=== PATIENT | female | born 1965 | race Caucasian/White ===

== ENCOUNTER 2017-12-24 13:16 | Emergency (ER) | payer BC, SELFPAY ==
[2017-12-24] VITALS (16 sets, daily range): BP systolic 140–160; BP diastolic 90–94; PULSE 60–73; RESP 12–23; TEMP 36.5–37; O2SAT 97–100
--- NOTE | 2017-12-24 13:35 | DI.RAD_ITS ---
SYMPTOMS/DIAGNOSIS: CHEST TIGHTNESS, ? ACUTE DISEASE PA AND LATERAL CHEST: The heart size is normal. A moderate-sized hiatal hernia with air-fluid level is seen. The lungs appear clear. IMPRESSION: Hiatal hernia. No acute abnormality.
--- NOTE | 2017-12-24 13:39 | ED.GENADUL_ITS ---
Discharge Plan Disposition Patient Disposition: HOME Condition: Improving Discharge Details Chief Complaint: Chest Pain Clinical Impression: Palpitations, Dyspnea Primary Care Provider: Verónica Dent ED Provider: Gabriela Barrios Home Meds and New Rx's Prescriptions: Continue ibuprofen 200 MG tablet 200 mg PO PRN RF: 0 calcium carbonate-vitamin D3 [Caltrate with Vitamin D3] 1 EACH tablet 2 ea PO HS RF: 0 cholecalciferol (vitamin D3) 1,000 UNIT tablet 2,000 unit PO DAILY RF: 0 levothyroxine 100 MCG tablet 100 mcg PO DAILY Qty: 90 RF: 12 mv,Ca,sfy-IJ-guljnk no.157 [Estroven Maximum Strength] 400 MCG tablet 400 mcg PO RF: 0 cetirizine 10 MG tablet 10 mg PO DAILY Qty: 30 RF: 11 ketorolac 0.4 % drops 1 drp Ophthalmic QID PRN (Reason: eye pain) Qty: 5 RF: 0 fexofenadine [Susan Allergy] 180 mg Tablet 180 mg PO DAILY RF: 0 loratadine 10 mg Capsule 10 mg PO HS RF: 0 raspberry ketone 100 mg Capsule 2 cap PO HS RF: 0 Discharge Instructions Instructions: Palpitations (ED), Dyspnea (ED) Additional Instructions: Drink plenty of fluids and get plenty of rest. Follow-up with the primary care doctor in 1 week for reevaluation and for results of the stress test. Return immediately to the emergency department any worsening or new concerning symptoms. Discharge Data Discharge Physician: Gabriela Barrios Medical Decision Making 52-year-old female with a history of hypothyroidism who presents for intermittent episodes of palpitations, shortness of breath and dizziness occurring over the past 3 weeks. She admits to a similar presentation of symptoms in the spring 2017 for which she had a environmental monitoring technician which was negative. Stress test from Apr 2017 read as occasional PVCs, rarely symptomatic. EKG notes a rate of 71, sinus, no acute ST elevation or depression, QTc 389, QRS 102. Blood pressure 160/90. Remainder of vitals within normal limits. Patient appears nontoxic and in no acute distress, laughing throughout exam and appears comfortable. Differential diagnosis includes ACS, dissection, PE, pneumonia, anxiety, hyperthyroid. Symptoms have been present for 3 weeks, and with intermittent episodes occurring at rest and when bending over, suspect possibly anxiety, dehydration, electrolyte abnormality. Will place an IV, bolus IV fluids, Ativan, cardiac workup including d-dimer, chest x-ray. 1400 -- Per nurse, pt refused ativan. 1515 -- Labs reviewed and note D dimer of 569 but otherwise unremarkable. Troponin negative. TSH within normal limits. CXR negative for acute findings. Will obtain a CT chest to r/o PE. Discussed with patient that although her symptoms have been present for 3 weeks, with more persistent symptoms today, will check a second troponin. Pt is agreeable with plan. She denies any acute complaints at this time. 1645 -- CT chest negative for PE. Pt states her symptoms are resolved and she denies any acute complaints at this time. 1715 -- 2nd troponin negative. Pt feels good and is requesting to go home. She denies any symptoms. Patient states she feels like her symptoms are possibly due to hot flashes from her menopause. Zio patch placed at bedside. Outpatient stress test ordered. Patient instructed to follow-up with primary care doctor in 1 week for reevaluation and to return immediately to the emergency department if worse. HPI General Mode of arrival: ambulatory . Date/Time Provider Initiated Documentation: 12/24/17 13:16 . Limitations to Documentation: no limitations . Information obtained by: patient . HPI Narrative: Patient is a 52-year-old female who presents the ED with complaint of intermittent palpitations, shortness of breath and dizziness for the past 3 weeks. She states the episodes last a few minutes have been occurring at least once daily. Patient admits to two significant episodes 4 days ago as well as this morning. Patient states today's episode occurred when she bent over and then stood up and felt dizzy, short of breath with heart racing and chest pain. She also states she feels like these episodes have been occurring since a bee sting 2 weeks ago. She had a similar episode occur after a bee sting in September. Patient denies a history of anaphylaxis to bee stings and states she had not taken steroids for either bee sting. She also admits to left arm pain since yesterday. she states she has a history of hot flashes for which she has seen her primary care doctor in women's wellness and had suggested estrogen but patient does not want to take this. She states her symptoms feel different than a previous hot flash and that she usually does not have palpitations, shortness of breath or dizziness. Patient states she has been eating and drinking well and denies recent illness, fever, recent travel, recent surgery, leg pain or swelling, blurry vision, cough, abdominal pain, back pain. Past medical history: Hypothyroidism Surgical history: Left ACL repair, hysterectomy, uterine prolapse Social history: Occasional alcohol use, denies tobacco or drugs Medications: Synthroid, loratadine Allergies: Oxycodone (nausea), tetanus PCP: Dr. Dent Related Data Home Medications Medication Instructions Recorded Confirmed ibuprofen 200 mg PO PRN 06/20/12 12/24/17 calcium carbonate-vitamin D3 2 ea PO HS 11/20/14 12/24/17 [Caltrate with Vitamin D3] cholecalciferol (vitamin D3) 2,000 unit PO DAILY 05/06/15 12/24/17 levothyroxine 100 mcg PO DAILY #90 tab-cap 01/28/17 12/24/17 mv,Ca,yso-VR-lruumj no.157 400 mcg PO 02/15/17 [Estroven Maximum Strength] cetirizine 10 mg PO DAILY #30 tab-cap 10/20/17 ketorolac 0.4 % eye drops 1 drp OPHTHALMIC QID PRN #5 ml 11/29/17 12/24/17 fexofenadine [Susan Allergy] 180 mg PO DAILY 12/24/17 12/24/17 loratadine 10 mg PO HS 12/24/17 12/24/17 raspberry ketone 2 cap PO HS 12/24/17 12/24/17 Previous Rx's Medication Instructions Recorded levothyroxine 100 mcg PO DAILY #90 tab-cap 01/28/17 cetirizine 10 mg PO DAILY #30 tab-cap 10/20/17 ketorolac 0.4 % eye drops 1 drp OPHTHALMIC QID PRN #5 ml 11/29/17 Allergies Allergy/AdvReac Type Severity Reaction Status Date / Time bee pollen Allergy Unknown Unverified 12/24/17 13:29 hydrocodone AdvReac Intermediate nausea Unverified 12/24/17 13:29 lactose AdvReac Unknown Unverified 12/24/17 13:29 oxycodone AdvReac Unknown dizziness, Unverified 12/24/17 13:29 nausea tetanus and diphtheria AdvReac TOLERATES Unverified 12/24/17 13:29 toxoids ONE HALF DOSE dust AdvReac Intermediate congestion Uncoded 12/24/17 13:29 General Stated Complaint: Chest Pain RICHI: 2 Review of Systems Review of Systems All systems reviewed & are unremarkable except as noted in HPI and below Constitutional Denies chills, Denies excessive sweating, Denies fatigue, Denies fever(s), Denies weakness and Denies weight loss Eyes Reports system reviewed and no additional complaints, except as docu and Denies blurry vision ENT Denies vertigo, Reports dizziness, Denies otalgia, Denies nasal congestion, Denies sore throat and Denies throat swelling Cardiovascular Reports chest pain, Denies syncope, Reports rapid heart rate and Reports dyspnea Respiratory Reports dyspnea Gastrointestinal Denies abdominal pain, Denies diarrhea and Denies vomiting Genitourinary Denies hematuria, Denies dysuria and Denies flank pain Musculoskeletal Denies back pain and Denies joint swelling Integumentary/Breasts Denies lesions and Denies rash Neurologic Denies behavioral changes, Denies confusion, Denies vertigo, Reports dizziness, Denies syncope and Denies weakness Psychiatric Denies behavioral changes, Denies confusion and Denies depression Endocrine Denies excessive sweating and Denies fatigue Hematologic/Lymphatic Denies easy bruising and Denies lymphadenopathy Allergic/Immunologic Denies throat swelling PFSH Family History Mother Essential hypertension Osteoporosis Father Diabetes Essential hypertension Heart disease Hyperlipidemia Cerebrovascular accident Sister No problems noted. Sister No problems noted. Sister No problems noted. Brother No problems noted. Brother No problems noted. Grandfather No problems noted. Grandfather No problems noted. Grandmother Neoplasm Grandmother Diabetes Son No problems noted. Daughter No problems noted. Daughter No problems noted. Social History Smoking/Tobacco Use Status: Never Surgical History Arthroplasty of knee Ligation of fallopian tube Meniscectomy Repair, ACL (09/21/12) Vaginal hysterectomy Exam Const General: cooperative and healthy appearing Orientation: alert and awake [facility] Head: normal to inspection Ears: hearing grossly normal bilaterally, external ears normal and TM's normal bilaterally General nose exam: external nose normal Face and sinus: normal facial exam Mouth: oral mucosae normal Teeth and gingiva: dentition normal Throat: posterior oropharynx normal Eyes General: appearance normal, both eyes and all related structures Eyelids: eyelids normal Pupils: PERRL EOM: EOM intact bilaterally Neck Neck: normal visual inspection Lymphatic: no lymphadenopathy noted Chest Chest: normal inspection of the chest, normal palpation of entire chest wall and no tenderness Resp Effort & Inspection: normal respiratory effort and able to speak in complete sentences Auscultation: clear to auscultation bilaterally Cardio Rate: regular rate Rhythm: regular rhythm GI Inspection: normal to inspection Palpation: soft, not firm, no guarding, no hepatosplenomegaly, no masses and nontender Auscultation: normal bowel sounds Back/Spine/Pelvis Back: no CVA tenderness Skin General skin exam: no rashes or lesions noted Neuro General: alert and awake Cognition: normal cognition Speech: speech normal Gait: normal gait Motor: muscle tone normal throughout Sensory Exam: no sensory deficits noted Extrem General: normal to inspection, full ROM and normal capillary refill Psych Appearance: grossly normal Mental Status: mental status grossly normal Speech and Movement: speech and movement normal Affect: normal affect Thought Process: normal Course Vital Signs Temperature 97.7 F 12/24/17 13:25 Pulse 73 12/24/17 13:25 Respiratory Rate 16 12/24/17 13:25 Blood Pressure 160/90 H 12/24/17 13:25 Pulse Oximetry 99 12/24/17 13:25 Temperature 97.7 F 12/24/17 13:25 Temperature Source Temporal Artery Scan 12/24/17 13:25 Pulse 73 12/24/17 13:25 Respiratory Rate 16 12/24/17 13:25 Respiratory Effort Non-Labored 12/24/17 13:28 Blood Pressure 160/90 H 12/24/17 13:25 Blood Pressure Position Supine 12/24/17 13:25 Pulse Oximetry 99 12/24/17 13:25 Oxygen Delivery Method Room Air 12/24/17 13:25 Oxygen Flow Rate 0 12/24/17 13:25 Pain Level 1 12/24/17 13:25
[2017-12-24] MEDS: Normal Saline 1,000 ML 1000 ML IV (13:57)
[2017-12-24 13:59] LABS: Abs Immature Grans 0.01 k/cumm (0.0-0.09); Absolute Basophil Count 0.08 k/cumm (0.0-0.2); Absolute Eosinophil Count 0.46 k/cumm (0.0-0.7); Absolute Monocyte Count 0.86 k/cumm (0.11-0.7); Absolute Neutrophil Count 5.02 k/cumm (1.2-6.7); Basophils % 0.9; HGB 12.9 g/dL (12.0-15.5); Immature Grans % 0.1; Lymphocytes % 29.6; Mean Corp. HGB Concentration 33.1 g/dL (32.0-36.0); Mean Corpuscular Hemoglobin 29.7 pg (27.0-33.0); Mean Corpuscular Volume 89.7 fL (80-95); Mean Platelet Volume 10.4 fL (8.0-11.0); Monocytes % 9.4; Platelet Count 354 x1000/uL (130-400); RBC 4.35 m/cumm (4.00-5.20); RBC Distribution Width 14.5 % (11.7-14.6); White Blood Cell Count 9.13 k/cumm (4.4-10.8)
[2017-12-24 14:29] LABS: D-Dimer 569 ng/mlFEU (<500)
[2017-12-24 14:31] LABS: ALT 23 U/L (12-78); AST 19 U/L (15-37); Albumin 3.2 g/dL (3.4-5.0); Alkaline Phosphatase 79 U/L (46-116); Anion Gap 7.4 mmol/L (3-11); BUN 15 mg/dL (7-18); Bilirubin, Direct 0.06 mg/dL (0.00-0.20); Bilirubin, Total 0.2 mg/dL (0.2-1.0); CO2 29.6 mmol/L (21.0-32.0); CREATININE 0.83 mg/dL (0.55-1.02); Calcium 8.3 mg/dL (8.5-10.1); Chloride 106 mmol/L (98-107); Glucose 104 mg/dL (70-100); Lipase 102 U/L (73-393); Magnesium 1.9 mg/dL (1.8-2.4); Potassium 3.8 mmol/L (3.5-5.1); Sodium 143 mmol/L (136-145); TSH 2.08 uIU/mL (0.358-3.74)
[2017-12-24 14:32] LABS: Troponin I < 0.02 ng/mL (0.00-0.06)
--- NOTE | 2017-12-24 15:08 | DI.CT_ITS ---
SYMPTOMS/DIAGNOSIS: SOB, PALPITATIONS, ELEVATED D-DIMER, ? PE CHEST CT FOR PULMONARY EMBOLISM: CT angiography was performed with multi slice acquisition and multi planar and 3D reconstruction. There are no prior PE examinations. The pulmonary arteries and aorta are well opacified with the IV contrast. No pulmonary emboli or aortic dissection is seen. There is a moderate-sized hiatal hernia containing food debris. The lungs show mild respiratory motion but appear clear. No infiltrates or effusions are seen. No thoracic compression fracture or pneumothorax is seen. IMPRESSION: Moderate-sized hiatal hernia. No evidence of pulmonary emboli.
[2017-12-24] MEDS: Omnipaque 350 MG/ML 100 ML BTL IJ (15:36)
[2017-12-24 17:23] LABS: Troponin I < 0.02 ng/mL (0.00-0.06)
--- NOTE | 2018-01-19 10:47 | ZIOP_ITS ---
ZIO Patch Report DATE OF DICTATION January 19, 2018 STUDY INDICATION Palpitations. REQUESTING PROVIDER Verónica Dent M.D. FINDINGS The patient was monitored for 13 days. COMMENTS The predominant underlying rhythm was sinus rhythm. Average heart rate in sinus rhythm 76 beats per m inute, range of 47 to 151 beats per minute. There was occasional supraventricular ectopy, 1.3% PACs. There were 82 episodes of supraventricular tachycardia, average heart rate 137 beats per minute, range 70 to 280 beats per minute. The longest e pisode lasted 28 seconds. There was no ventricular tachycardia. There were no pauses greater than 3 seconds. There was no higher-degree heart block. There were 8 patient events, 6 events correlated with supraventricular tachycardic, all other events did not correlate with arrhythmia. FINAL INTERPRETATION Symptomatic paroxysmal supraventricular tachycardia. Sree Benítez M.D. DAJUAN/steve T-01/19/2018
== END 2017-12-24 18:10 | disposition home or self-care (01) ==
PROVIDERS: Emergency Provider Physician Assistant; PCP Family Medicine
DX: R00.2 Palpitations (principal); R06.00 Dyspnea, unspecified
CPT/HCPCS: 36415; 71275; 80053; 80076; 83690; 93005; 93225; 96360; 99285; 71046; 83735; 84443; 84484; 85025; 85379; 93010; J3490

== ENCOUNTER 2017-12-29 00:13 | Outpatient (CLI) | payer BC, SELFPAY ==
--- NOTE | 2017-12-29 14:00 | ETT_ITS ---
*[facility]* *[facility]* [address] [place] [address] Stress Electrocardiography Vaibhav protocol Date of study: 12/29/2017 *PATIENT PRESENTATION* Height: 172.7cm (68in) Blood Pressure: Weight: 93.2kg (205lb) BSA: 2.14m^2 Ordering physician: Gabriela Barrios Impressions: Normal study after maximal exercise. Summary: 1. Stress ECG conclusions: The stress ECG is negative. Burger treadmill score: 9. This score predicts a low risk of cardiac events. 2. Stress: The target heart rate was achieved. The heart rate response to stress is normal. There is resting hypertension with an appropriate response to stress. The patient experienced no chest pain during stress. Exercise capacity is good (10.2 METS). Indication: R07.9. History: REASON FOR TESTING: PATIENT: PATIENT HAS HAD PALPITATIONS, CHEST PAIN, SHORTNESS OF BREATH INTERMITTENTLY FOR THE PAST TWO WEEKS. REPORTS DIZZYNESS AND LIGHTHEADEDNESS OVER THE PAST WEEK. SOME DAYS HAVE NO SYMPTOMS. PATIENT PRESENTED TO THE ED 12/24/17 WITH CHEST PAIN , PALPITATIONS AND DYSPNEA. TROPONINS WERE NEGATIVE, NM RULED OUT. PATIENT CURRENTLY WEARING ZIO PATCH. PAST MEDICAL HISTORY: HYPOTHYROID, HYSTERECTOMY AND UTERINE PROLAPSE. FAMILY HISTORY: FATHER AND MOTHER-HEART DISEASE SMOKING: NEVER EXERCISE: PHYSICALLY ACTIVE AROUND THE HOME. Risk factors: Family history of coronary artery disease. Cholesterol: 188mg/dl. HDL: 48mg/dl. LDL: 132mg/dl. Triglycerides: 49mg/dl. ALLERGIES: BEE POLLEN, HYDROCODONE, LACTOSE, OXYCODONE, DUST, TETANUS AND DIPHTHERIA TOXOIDS. MEDICATIONS: IBUPROFEN 200 MG PRN, CALCIUM CARBONATE-VITAMIN D3 2 TABS HS, CHOLECALCIFEROL 2000 UNITS DAILY, LEVOTHYROXINE 100 MCG DAILY, ESTROVEN MAXIMUM STRENGTH 400 MCG DAILY, CITIRIZINE 10 MG DAILY, KETORLAC 0.4% EYE DROPS QID PRN, FREYA ALLERGY 180 MG DAILY, LORATADINE 10 MG HS, RASPBERRY KETONE 2 CAPULES HS. Protocol: Vaibhav protocol. Baseline ECG: LAST EKG: SINUS RHYTHM 12/24/17. TODAY'S EKG: SINUS RHYTHM. Normal ECG. Nonspecific ST and T wave changes. Stress protocol: + +---+ + !Stage !HR !BP (mmHg) ! + +---+ + !Baseline supine !66 !150/94 (113) ! + +---+ + !Baseline standing !73 !146/84 (105) ! + +---+ + !Stage I; 1.7mph, 10degrees; 3 min !108!170/98 (122) ! + +---+ + !Stage II; 2.5mph, 12degrees; 3 min !130!178/100 (126)! + +---+ + !Stage III; 3.4mph, 14degrees; 3 min!156!210/112 (145)! + +---+ + !Recovery; 1 min !130!212/104 (140)! + +---+ + !Recovery; 3 min !87 !164/98 (120) ! + +---+ + !Recovery; 6 min !88 !154/98 (117) ! + +---+ + * Stress results: The target heart rate was achieved. The heart rate response to stress is normal. There is resting hypertension with an appropriate response to stress. The rate-pressure product for the peak heart rate and blood pressure was [id number] Hg/min. The patient experienced no chest pain during stress. Exercise capacity is good (10.2 METS). Stress ECG: EXERCISE TESTING ENDED IN 9 MINUTES 3 SECONDS WITH A MAX HEART RATE OF 164 , 98 % OF TARGET. BLOOD PRESSURE: HYPERTENSIVE RESPONSE. ECTOPY: OCCASIONAL PAC'S AND PVC'S. MILD TRANSIENT ST DEPRESSION IN II, III, AVF LEADS AT 6:53 SECONDS--RETURNED TO NORMAL IN RECOVERY. MET'S: 10.23 ANGINA: NONE ISCHEMIA: MILD TRANSIENT ST DEPRESSION IN II, III, AVF LEADS AT 6:53 SECONDS--DEPRESSION NO LONGER EVIDENT JUST PRIOR TO RECOVERY. FUNCTIONAL CAPACITY: ABOVE AVERAGE The stress ECG is negative. Burger treadmill score: 9. This score predicts a low risk of cardiac events. Study data: Sree Benítez MD supervised and was readily available during the procedure. This study was interpreted by [facility]. Study status: Routine. Consent: The risks, benefits, and alternatives to the procedure were explained to the patient and informed consent was obtained. Procedure: Initial setup. A baseline ECG was recorded. Surface ECG leads and manual cuff blood pressure measurements were monitored. Heart sounds: Normal. Lung sounds: Normal. Treadmill exercise testing was performed using the Vaibhav protocol. Study completion: The patient tolerated the procedure well and was discharged from the lab. Discharge: The patient left the laboratory in stable condition. Birthdate: Patient birthdate: 1965. Sex: Gender: female. Study date: Study date: 12/29/2017. Study time: 02:00 PM. Signature Documentation: The Stress ECG portion of this study was interpreted by Sree Benítez MD. Electronically signed by Sree Benítez 12/29/2017 15:46
== END 2017-12-29 00:33 ==
PROVIDERS: PCP Family Medicine; Visit Provider Physician Assistant
DX: R07.9 Chest pain, unspecified (principal); R00.2 Palpitations; R42 Dizziness and giddiness; E03.9 Hypothyroidism, unspecified; Z82.49 Family history of ischemic heart disease and other diseases of the circulatory system
CPT/HCPCS: 93017

== ENCOUNTER 2018-02-14 00:52 | Outpatient (CLI) | payer BC, SELFPAY ==
--- NOTE | 2018-02-14 13:30 | DI.MAMMO_ITS ---
SYMPTOM/DIAGNOSIS: SCREENING, Z12.31 MAMMOGRAMS: Mammograms were interpreted according to the usual protocol including computer analysis with CAD system, tomosynthesis and C view imaging. Comparison is made with the prior examinations. No suspicious masses or microcalcifications are seen. The skin and axillae are unremarkable. IMPRESSION: No evidence for malignancy. Yearly mammography is recommended. Category 1, breast density C. MQSA ASSESSMENT OF FINDINGS: Negative. Category 1. Patient will receive a letter notifying them of these results. Bi-RADS category C. The breasts are heterogeneously dense, which may obscure small masses.
[2018-02-14 14:38] LABS: Vitamin D 25 Total 65.3 ng/ml (30-100)
[2018-02-14 14:40] LABS: ALT 20 U/L (12-78); AST 17 U/L (15-37); Albumin 3.6 g/dL (3.4-5.0); Alkaline Phosphatase 77 U/L (46-116); Anion Gap 11.5 mmol/L (3-11); BUN 18 mg/dL (7-18); Bilirubin, Total 0.4 mg/dL (0.2-1.0); CO2 25.5 mmol/L (21.0-32.0); CREATININE 0.75 mg/dL (0.55-1.02); Chloride 106 mmol/L (98-107); Glucose 100 mg/dL (70-100); Potassium 4.2 mmol/L (3.5-5.1); Sodium 143 mmol/L (136-145); Total Protein 7.1 g/dL (6.4-8.2); Vitamin B12 289 pg/mL (193-986)
[2018-02-15 10:34] LABS: FSH 53.8 mIU/ml; LH 28.4 mIU/ml
== END 2018-02-14 01:12 ==
PROVIDERS: PCP Family Medicine; Visit Provider Family Medicine
DX: Z12.31 Encounter for screening mammogram for malignant neoplasm of breast (principal); Z00.00 Encounter for general adult medical examination without abnormal findings; N95.1 Menopausal and female climacteric states; F41.9 Anxiety disorder, unspecified
CPT/HCPCS: 36415; 77063; 77067; 80053; 82306; 82607; 83001; 83002

== ENCOUNTER 2018-03-14 13:02 | Outpatient (REF) | payer BC, SELFPAY ==
[2018-03-14 13:22] LABS: Bilirubin Negative (Negative); Blood Moderate (Negative); Clarity Sl Cloudy; Glucose Negative (Negative); Ketones Negative (Negative); Leukocyte Esterase Negative (Negative); Nitrite Negative (Negative); Specific Gravity >= 1.030 (1.005-1.025); Urobilinogen 0.2 EU/dL (Up TO 0.2); pH 5.5 (5-8)
[2018-03-14 14:25] LABS: Epithelial Cells Many HPF (Negative); RBC 0-2 (0-2); WBC 0-2 HPF (0-5)
[2018-03-14 14:26] LABS: Bacteria Few HPF (Negative); C & S Indicated? No/Sq. Contamination; Casts Negative LPF (Negative); Crystals Negative HPF (Negative); Mucus Moderate (Negative)
== END 2018-03-14 13:22 ==
LOC: LBN 13:02
PROVIDERS: PCP Family Medicine; Visit Provider Family Medicine
DX: R35.0 Frequency of micturition (principal)
CPT/HCPCS: 81003; 81015

== ENCOUNTER 2018-03-16 15:27 | Emergency (ER) | payer BC, SELFPAY ==
[2018-03-16 15:37] VITALS: BP 144/88; PULSE 74; RESP 18; O2SAT 99
[2018-03-16 15:53] VITALS: TEMP 36.8
--- NOTE | 2018-03-16 16:03 | W.ED.GENAD ---
Discharge Plan Disposition Patient Disposition: HOME Condition: Improving Discharge Details Chief Complaint: Abd Prob Clinical Impression: Abdominal pain Primary Care Provider: Verónica Dent ED Provider: Rusty Merlos Home Meds and New Rx's Prescriptions: Continued levothyroxine 100 mcg tablet 100 mcg PO DAILY Qty: 90 RF: 12 epinephrine [EpiPen 2-Silas] 0.3 mg/0.3 mL auto-injector 0.3 mg IM ONCE Qty: 2 RF: 2 ibuprofen 200 MG tablet 200 mg PO PRN RF: 0 calcium carbonate-vitamin D3 [Caltrate with Vitamin D3] 1 EACH tablet 2 ea PO HS RF: 0 ketorolac 0.4 % drops 1 drp Ophthalmic QID PRN (Reason: eye pain) Qty: 5 RF: 0 cholecalciferol (vitamin D3) 1,000 unit tablet See Patient Comments PO DAILY RF: 0 loratadine 10 mg Capsule 10 mg PO HS RF: 0 fexofenadine [Susan Allergy] 180 mg tablet 180 mg PO DAILY PRNRF: 0 Discontinued ciprofloxacin HCl 250 mg tablet 250 mg PO BID Qty: 14 RF: 0 Discharge Instructions Instructions: Abdominal Pain (ED) Additional Instructions: Stop the ciprofloxacin. Home to rest this evening. Tylenol and/or ibuprofen as needed for discomfort. Next dose of ibuprofen in 6 hours. Please follow-up with Dr. Dent in clinic for recheck. Return if you develop a fever, vomiting, worsening pain or any other concerns. Medical Decision Making 52-year-old female presents with approximately 4 days of right lower quadrant abdominal pain. She was seen by her primary care and had a urinalysis ordered which she reports was negative and for which she took 3 days of ciprofloxacin, last dose was this morning. She arrives with no temperature, reassuring vital signs, tenderness of right lower quadrant on exam. Differential diagnosis includes colitis, diverticulitis, appendicitis, mesenteric adenitis. Patient had IV access established comfort for laboratory testing as well as CT imaging. Her diagnostic study reveals multiple nonspecific, nonpathologic small lymph nodes in the mesentery. There is report of stable diffuse inflammatory stranding throughout the central mesentery. The junaid mesentery has a differential diagnosis that is broad but does include edema, fibrosis, carcinoma which does not appear to be present. The pt seen in consultation by Dr Priest. No indication for admission or surgical management. Will treat with NSAIDs and follow-up with primary care office. Dr. Priest and I discussed the case with the patient at the bedside HPI General Mode of arrival: ambulatory. Date/Time Provider Initiated Documentation: 03/16/18 15:44. Limitations to Documentation: no limitations. Information obtained by: patient. History of Present Illness 52 year old F presents to the emergency department with the chief complaint of Right lower quadrant abdominal, described as moderate, Quality is described as aching, and is localized to the abdomen and right. Patient reports no radiation. Patient started experiencing this day(s) and it has been constant. No relieving factors improve symptom(s), No exacerbating factors reported . Patient notes loss of appetite and malaise. Patient did receive the following treatments prior to arrival, other (Ciprofloxacin 500 mg twice daily times) HPI Narrative: Right lower quadrant abdominal pain, dull, achy, constant but does come in waves over days time. Had report of negative urinalysis in the office. Took 3 days worth of ciprofloxacin and now presents the ER complaining of ongoing discomfort Related Data Home Medications Medication Instructions Recorded Confirmed ibuprofen 200 mg PO PRN 06/20/12 02/21/18 calcium carbonate-vitamin D3 2 ea PO HS 11/20/14 02/21/18 [Caltrate with Vitamin D3] ketorolac 0.4 % eye drops 1 drp OPHTHALMIC QID PRN #5 ml 11/29/17 02/21/18 loratadine 10 mg PO HS 12/24/17 02/21/18 epinephrine 0.3 mg/0.3 mL 0.3 mg IM ONCE #2 each 01/03/18 02/21/18 injection, auto-injector cholecalciferol (vitamin D3) 1,000 See Rx Instructions PO DAILY 02/10/18 02/21/18 unit tablet fexofenadine 180 mg tablet 180 mg PO DAILY PRN 02/10/18 02/21/18 levothyroxine 100 mcg tablet 100 mcg PO DAILY #90 tab-cap 02/10/18 02/21/18 Previous Rx's Medication Instructions Recorded ketorolac 0.4 % eye drops 1 drp OPHTHALMIC QID PRN #5 ml 11/29/17 epinephrine 0.3 mg/0.3 mL 0.3 mg IM ONCE #2 each 01/03/18 injection, auto-injector levothyroxine 100 mcg tablet 100 mcg PO DAILY #90 tab-cap 02/10/18 Allergies Allergy/AdvReac Type Severity Reaction Status Date / Time bee pollen Allergy Unknown Verified 02/21/18 11:25 hydrocodone AdvReac Intermediate nausea Verified 02/21/18 11:25 lactose AdvReac Unknown Verified 02/21/18 11:25 oxycodone AdvReac Unknown dizziness, Verified 02/21/18 11:25 nausea tetanus and diphtheria AdvReac TOLERATES Verified 02/21/18 11:25 toxoids ONE HALF DOSE dust AdvReac Intermediate congestion Uncoded 02/14/18 10:04 General Stated Complaint: Abd Prob RICHI: 3 Review of Systems Review of Systems 8 systems reviewed and otherwise neg [facility] Medical History Tachycardia (Chronic 11/20/14) Plantar fasciitis (Resolved) Old anterior cruciate ligament disruption (Chronic 09/19/12) Migraine (Resolved) Low back pain (Chronic) Lactose intolerance (Chronic) Hypothyroidism (Chronic 12/09/09) Anxiety (Chronic) Surgical History Arthroplasty of knee Ligation of fallopian tube Meniscectomy Repair, ACL (09/21/12) Vaginal hysterectomy Family History Mother Essential hypertension Osteoporosis Cancer Father Diabetes Essential hypertension Heart disease Hyperlipidemia Stroke Sister No problems noted. Sister No problems noted. Sister No problems noted. Brother No problems noted. Brother No problems noted. Son No problems noted. Daughter No problems noted. 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 Pleasant, well groomed, interactive. HEAD: Normocephalic, atraumatic ENT: Mucous membranes moist, oropharynx unremarkable, External ear exam unremarkable EYES: PERRL, EOMI NECK: Full ROM, no BALINE, no menigismus CHEST/RESP: Nontender, clear to auscultation bilateral, no wheeze/rhonchi/rales CARDIOVASCULAR: RRR, no murmur, rub tata. 2+ Rad pulse bilateral ABDOMEN: Soft, tender in the right lower quad, no rebound or guarding, no mass. +Bowel sounds EXT: Full ROM, no edema, no rash Neuro: Grossly normal neurologic exam, conversant, interactive. Psych: Speech fluent, thoughts congruent, affect normal Course Vital Signs Pulse 74 03/16/18 15:37 Respiratory Rate 18 03/16/18 15:37 Blood Pressure 144/88 H 03/16/18 15:37 Pulse Oximetry 99 03/16/18 15:37 Temperature 36.8 C 03/16/18 15:53 Pulse 74 03/16/18 15:37 Respiratory Rate 18 03/16/18 15:37 Respiratory Effort Non-Labored 03/16/18 15:37 Blood Pressure 144/88 H 03/16/18 15:37 Pulse Oximetry 99 03/16/18 15:37 Oxygen Delivery Method Room Air 03/16/18 15:37 Oxygen Flow Rate 0 03/16/18 15:37 Pain Level 8 03/16/18 15:37
[2018-03-16 16:14] LABS: Abs Immature Grans 0.01 k/cumm (0.0-0.09); Absolute Basophil Count 0.08 k/cumm (0.0-0.2); Absolute Eosinophil Count 0.37 k/cumm (0.0-0.7); Absolute Lymphocyte Count 2.74 k/cumm (1.2-3.4); Absolute Monocyte Count 1.01 k/cumm (0.11-0.7); Absolute Neutrophil Count 5.82 k/cumm (1.2-6.7); Basophils % 0.8; Eosinophils % 3.7; HCT 42.6 % (36.0-46.0); Immature Grans % 0.1; Lymphocytes % 27.3; Mean Corp. HGB Concentration 32.9 g/dL (32.0-36.0); Mean Corpuscular Hemoglobin 29.4 pg (27.0-33.0); Mean Corpuscular Volume 89.5 fL (80-95); Mean Platelet Volume 10.6 fL (8.0-11.0); Monocytes % 10.1; Platelet Count 397 x1000/uL (130-400); RBC 4.76 m/cumm (4.00-5.20); RBC Distribution Width 14.2 % (11.7-14.6); White Blood Cell Count 10.03 k/cumm (4.4-10.8)
[2018-03-16 16:22] LABS: Bilirubin Negative (Negative); Blood Moderate (Negative); Clarity Sl Cloudy; Glucose Negative (Negative); Ketones Negative (Negative); Leukocyte Esterase Negative (Negative); Nitrite Negative (Negative); Specific Gravity >= 1.030 (1.005-1.025); Urobilinogen 0.2 EU/dL (Up TO 0.2); pH 5.5 (5-8)
[2018-03-16 16:24] LABS: ALT 41 U/L (12-78); AST 32 U/L (15-37); Albumin 3.5 g/dL (3.4-5.0); Alkaline Phosphatase 89 U/L (46-116); Anion Gap 7.4 mmol/L (3-11); BUN 18 mg/dL (7-18); Bilirubin, Total 0.3 mg/dL (0.2-1.0); CO2 29.6 mmol/L (21.0-32.0); CREATININE 1.03 mg/dL (0.55-1.02); Calcium 8.8 mg/dL (8.5-10.1); Chloride 105 mmol/L (98-107); Estimated GFR 55.84 (mL/min/1.73m2); Glucose 93 mg/dL (70-100); Magnesium 1.7 mg/dL (1.8-2.4); Potassium 3.2 mmol/L (3.5-5.1); Sodium 142 mmol/L (136-145); Total Protein 7.7 g/dL (6.4-8.2)
[2018-03-16] MEDS: Normal Saline 1,000 ML 1000 ML IV ×2 (16:29→17:24)
--- NOTE | 2018-03-16 16:32 | NUR.NOTE ---
Nursing Note:Pt off unit to CT
--- NOTE | 2018-03-16 16:37 | DI.CT_ITS ---
SYMPTOM/DIAGNOSIS: RLQ ABD PAIN ABDOMEN AND PELVIC CT: CT scan of the abdomen and pelvis was performed following the uneventful administration of intravenous contrast material. Comparison is made with 03/16/14. No acute findings are seen in the lung bases. Note is made of a large hiatal hernia. The liver is normal in size. No suspicious hepatic masses are seen. The portal and superior mesenteric veins are patent. The gallbladder is negative. No biliary ductal dilatation is seen. The pancreas and peripancreatic soft tissues are unremarkable. The spleen is again seen to be absent. The adrenal glands are unremarkable. The kidneys show normal and symmetric enhancement. No evidence of a suspicious solid renal mass or obstruction is identified. There is again seen a small cyst on the left kidney. No hydronephrosis is identified. The urinary bladder is intact. The patient appears to be status post hysterectomy. There is mild atherosclerosis of the abdominal aorta but no aneurysmal dilatation. No significant abdominal or pelvic adenopathy is seen. No ascites or pneumoperitoneum is present. There is again seen areas of increased attenuation in the mesentery with a pseudocapsule. This is stable compared to the prior examination. There was a soft tissue nodule on the prior examination measuring 1.2 cm. in the anterior mid abdomen (series 2, image 367). It appears to have resolved compared to the prior examination. There may be a tiny residual nodule in this region on the current examination. The bowel shows no evidence of obstruction or inflammation. No findings to suggest acute appendicitis are present. Mild degenerative changes are seen in the spine. IMPRESSION: No acute abnormality. Stable mesenteric findings with much smaller or resolved mesenteric nodule.
[2018-03-16 16:38] LABS: Bacteria Rare HPF (Negative); Epithelial Cells Many HPF (Negative); WBC 0-2 HPF (0-5)
[2018-03-16 16:39] LABS: C & S Indicated? No/Sq. Contamination; Casts Negative LPF (Negative); Crystals Negative HPF (Negative); Mucus Negative (Negative)
[2018-03-16] MEDS: Omnipaque 350 MG/ML 100 ML BTL IJ (16:39)
[2018-03-16 16:48] VITALS: PULSE 80; RESP 16; TEMP 36.7
--- NOTE | 2018-03-16 17:19 | DI.VRAD_ITS ---
EXAM: CT Abdomen and Pelvis With Contrast EXAM DATE/TIME: 03/16/2018 4:03 PM CLINICAL HISTORY: 52 years old, female; Pain; Abdominal pain TECHNIQUE: Axial computed tomography images of the abdomen and pelvis with intravenous contrast. Coronal and sagittal reformatted images were created and reviewed. COMPARISON: CT ABD PELVIS WITH CONTRAST 03/16/2014 10:35 AM FINDINGS: Lower thorax: Lung bases are clear. Stable moderate size hiatal hernia. ABDOMEN: Liver: Unremarkable. No mass. Gallbladder and bile ducts: Unremarkable.No calcified stones. No ductal dilation. Pancreas: Unremarkable. No ductal dilation. Spleen: Stable absence of the spleen. Adrenals: Unremarkable. No mass. Kidneys and ureters: Small posterior left renal cyst. No hydronephrosis. Stomach and bowel: Unremarkable. No obstruction. No mucosal thickening. Appendix: No evidence of appendicitis. PELVIS: Bladder: Unremarkable as visualized. Reproductive: There has been a hysterectomy. No adnexal cysts or masses are identified. ABDOMEN and PELVIS: Intraperitoneal space: No free air or free fluid. No abscess. Bones/joints: No acute fracture. No dislocation. Soft tissues: Unremarkable. Vasculature: Unremarkable. No abdominal aortic aneurysm. No vascular occlusive lesion. Lymph nodes: There are multiple nonspecific nonpathologic small lymph nodes in the mesentery. There are no mesenteric lymph nodes of pathologic dimensions. There is stable diffuse inflammatory stranding throughout the central mesentery, with pseudocapsule and fat halo sign. The associated irregular 12 mm soft tissue density seen in the anterior midline on comparison series 2 image 367 is either much smaller (today's series 4 image 31) or resolved. IMPRESSION: 1. No acute findings. 2. Stable junaid mesentery with much smaller or resolved soft tissue density. Dictated and Authenticated by: Sharmila Rey MD. Ordering:LUIS A Ojeda MD
--- NOTE | 2018-03-16 17:37 | NUR.NOTE ---
Nursing Note: Resting in bed, IVF infusing, no acute changes. Surgery in to consult. will continue to monitor.
[2018-03-16] MEDS: Ketorolac 15 MG/ML VIAL IVP (17:55)
[2018-03-16 17:58] VITALS: BP 149/84; PULSE 73; RESP 18; TEMP 37.3; O2SAT 100
[2018-03-16 19:04] LABS: C-Reactive Protein 0.41 mg/dL (0.0-0.3)
[2018-03-16 19:31] LABS: ESR 8 MM/HR (0-30)
--- NOTE | 2018-03-18 18:15 | SCONE_ITS ---
Date of service: 03/16/18 Time of Service: 19:00 Assessment and Plan (1) RLQ abdominal pain: Current visit: No Status: Acute No surgical indications were found on physical exam or diagnostic imaging. Literature review of junaid mesentery shows that it can have multiple causes including: Malignancy, vasculitis, inflammatory process, and idiopathic. No evidence of malignancy was seen on CT the vasculature of the mesentery pill appears patent, and inflammatory markers are negative. She may have had a prior inflammatory process that this is a left over from which appears to be the case is this appears to be improving from her prior CT. History of Present Illness Chief Complaint: RLQ pain Narrative: I was asked to evaluate Mrs. Arellano who is a 52-year-old woman presenting to the emergency room with 5 days of worsening right lower quadrant pain that is intermittent in nature. She has pain similar to this in the past which she has attributed to ovarian cysts. Her current pain is different and t hat it has lasted longer. She reports the pain sometimes shoots down her leg or into her back but always seems to start from the anterior right right lower quadrant. Her workup in the emergency room has been fairly unremarkable except for CT findings of a question of junaid mesentery. Consults Consult date: 03/16/18 Requesting physician: Rusty Merlos Review of Systems Review of Systems All systems reviewed & are unremarkable except as noted in HPI and below PFSH Medical History Tachycardia (Chronic 11/20/14) Plantar fasciitis (Resolved) Old anterior cruciate ligament disruption (Chronic 09/19/12) Migraine (Resolved) Low back pain (Chronic) Lactose intolerance (Chronic) Hypothyroidism (Chronic 12/09/09) Anxiety (Chronic) Surgical History Arthroplasty of knee Ligation of fallopian tube Meniscectomy Repair, ACL (09/21/12) Vaginal hysterectomy Family History Mother Essential hypertension Osteoporosis Cancer Father Diabetes Essential hypertension Heart disease Hyperlipidemia Stroke Sister No problems noted. Sister No problems noted. Sister No problems noted. Brother No problems noted. Brother No problems noted. Son No problems noted. Daughter No problems noted. 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 pets and animals: Yes pets and animals: cat(s) and dog(s) frequency: 3-4 times per week duration: 15-30 minutes/day Smoking/Tobacco Use Status: Never alcohol intake: current Alcohol type: wine substance use type: does not use lyn/roman catholic: Sikhism special lyn needs: No Exam Const General: cooperative, healthy appearing, no acute distress, well developed and well groomed Nutritional Appearance: overweight Orientation: alert, awake and oriented x3 HENMT Head: normal to inspection, normocephalic and atraumatic Ears: hearing grossly normal bilaterally General nose exam: external nose normal Face and sinus: normal facial exam Mouth: oral mucosae normal Eyes General: appearance normal, both eyes and all related structures Periorbital: periorbital findings normal Sclera: sclerae normal Pupils: PERRL EOM: EOM intact bilaterally Neck Neck: normal visual inspection, full ROM, trachea midline and supple Chest Chest: normal inspection of the chest Resp Effort & Inspection: normal respiratory effort Auscultation: clear to auscultation bilaterally Cardio Rate: regular rate Rhythm: regular rhythm Heart Sounds: S1 normal and S2 normal GI Inspection: normal to inspection and non-distended Palpation: soft, no guarding, not rigid and tender in the RLQ; Aguilar's sign negative, obturator sign negative, psoas sign negative, with no rebound tenderness and Rovsing's sign negative Skin General skin exam: no rashes or lesions noted and turgor normal Neuro General: moves all extremities, no focal motor deficits and CN's II-XI intact bilaterally Extrem General: normal capillary refill and no clubbing, cyanosis or edema Psych Appearance: grossly normal Mental Status: mental status grossly normal Affect: normal affect Attitude: cooperative Judgment: judgment good Results Last Vital Signs Temp 37.3 C 03/16/18 17:58 Pulse 73 03/16/18 17:58 Resp 18 03/16/18 17:58 BP 149/84 H 03/16/18 17:58 Pulse Ox 100 03/16/18 17:58 Labs : 03/16/18 16:00 03/16/18 16:[address] scan report/results: image reviewed CT scan - pelvis: image reviewed Imaging Studies: CT:CT abdomen & pelvis w SYMPTOM/DIAGNOSIS: RLQ ABD PAIN ABDOMEN AND PELVIC CT: CT scan of the abdomen and pelvis was performed following the uneventful administration of intravenous contrast material. Comparison is made with 03/16/14. No acute findings are seen in the lung bases. Note is made of a large hiatal hernia. The liver is normal in size. No suspicious hepatic masses are seen. The portal and superior mesenteric veins are patent. The gallbladder is negative. No biliary ductal dilatation is seen. The pancreas and peripancreatic soft tissues are unremarkable. The spleen is again seen to be absent. The adrenal glands are unremarkable. The kidneys show normal and symmetric enhancement. No evidence of a suspicious solid renal mass or obstruction is identified. There is again seen a small cyst on the left kidney. No hydronephrosis is identified. The urinary bladder is intact. The patient appears to be status post hysterectomy. There is mild atherosclerosis of the abdominal aorta but no aneurysmal dilatation. No significant abdominal or pelvic adenopathy is seen. No ascites or pneumoperitoneum is present. There is again seen areas of increased attenuation in the mesentery with a pseudocapsule. This is stable compared to the prior examination. There was a soft tissue nodule on the prior examination measuring 1.2 cm. in the anterior mid abdomen (series 2, image 367). It appears to have resolved compared to the prior examination. There may be a tiny residual nodule in this region on the current examination. The bowel shows no evidence of obstruction or inflammation. No findings to suggest acute appendicitis are present. Mild degenerative changes are seen in the spine. IMPRESSION: No acute abnormality. Stable mesenteric findings with much smaller or resolved mesenteric nodule
== END 2018-03-16 18:07 | disposition home or self-care (01) ==
PROVIDERS: Emergency Provider Emergency Medicine; PCP Family Medicine
DX: R10.31 Right lower quadrant pain (principal)
CPT/HCPCS: 36415; 80053; 81025; 85652; 96361; 96374; 99253; 99285; 74177; 81003; 81015; 83735; 85025; 86140; 99284; J1885; J3490

== ENCOUNTER 2019-02-13 12:42 | Outpatient (CLI) | payer BC, SELFPAY ==
--- NOTE | 2019-02-13 12:30 | DI.RAD_ITS ---
EXAM: XR THORACIC SPINE COMPLETE INDICATION: thoracic back pain, M54.6. COMPARISON: No exams were available for comparison TECHNIQUE: 2D digital imaging was performed. FINDINGS: There is normal alignment of the thoracic spine. No acute fractures or subluxations are present. Th ere are mild degenerative changes seen in the midthoracic spine. The paraspinal lines are unremarkab le. Incidental note is made of a small hiatal hernia. IMPRESSION: Mild degenerative changes of the thoracic spine.
--- NOTE | 2019-02-13 12:35 | DI.RAD_ITS ---
EXAM: XR LUMBAR SPINE COMPLETE INDICATION: LBP, M54.5. COMPARISON: LUMBAR SPINE COMPLETE from 03/02/2014 TECHNIQUE: 2D digital imaging was performed. FINDINGS: There are 5 lumbar type vertebral bodies. No spondylolysis or spondylolisthesis is seen. At L5-S1 m oderately severe degenerative changes are present. There is joint space narrowing, periarticular spu rring and subchondral sclerosis. Degenerative changes of the facets at L4-L5 and L5-S1 are noted. T he remaining disc levels are unremarkable. The bones are intact and normally mineralized. The soft tissues are unremarkable. IMPRESSION: Moderately severe degenerative changes at L5-S1.
[2019-02-13 13:13] LABS: HCT 41.7 % (36.0-46.0); HGB 13.6 g/dL (12.0-15.5); Mean Corp. HGB Concentration 32.6 g/dL (32.0-36.0); Mean Corpuscular Hemoglobin 29.1 pg (27.0-33.0); Mean Corpuscular Volume 89.3 fL (80-95); Mean Platelet Volume 9.9 fL (8.0-11.0); Platelet Count 417 x1000/uL (130-400); RBC 4.67 m/cumm (4.00-5.20); RBC Distribution Width 14.2 % (11.7-14.6); White Blood Cell Count 8.07 k/cumm (4.4-10.8)
[2019-02-13 14:00] LABS: ALT 18 U/L (14-59); AST 18 U/L (15-37); Albumin 3.8 g/dL (3.4-5.0); Alkaline Phosphatase 86 U/L (46-116); Anion Gap 7.7 mmol/L (3-11); BUN 18 mg/dL (7-18); Bilirubin, Total 0.5 mg/dL (0.2-1.0); CO2 30.3 mmol/L (21.0-32.0); CREATININE 0.76 mg/dL (0.55-1.02); Calcium 9.2 mg/dL (8.5-10.1); Chloride 106 mmol/L (98-107); Glucose 95 mg/dL (74-106); Potassium 4.2 mmol/L (3.5-5.1); Sodium 144 mmol/L (136-145); TSH (W/Ref FT4) 4.61 uIU/mL (0.36-3.74); Total Protein 7.4 g/dL (6.4-8.2)
[2019-02-13 14:17] LABS: FREE T4 1.32 ng/dL (0.76-1.46)
== END 2019-02-13 13:02 ==
PROVIDERS: Nurse Practitioner; PCP Family Medicine; Visit Provider Family Medicine
DX: Z00.00 Encounter for general adult medical examination without abnormal findings (principal); M54.6 Pain in thoracic spine; M47.814 Spondylosis without myelopathy or radiculopathy, thoracic region; M54.5 Low back pain; M47.817 Spondylosis without myelopathy or radiculopathy, lumbosacral region; E03.9 Hypothyroidism, unspecified; R10.13 Epigastric pain
CPT/HCPCS: 36415; 80053; 85027; 72072; 72110; 83013; 84439; 84443

== ENCOUNTER 2019-02-22 01:21 | Outpatient (CLI) | payer BC, SELFPAY ==
--- NOTE | 2019-02-22 06:57 | DI.US_ITS ---
EXAM: US ABDOMEN CLINICAL HISTORY: epigastric pain, r10.13 TECHNIQUE: Ultrasound abdomen performed using standard protocol. COMPARISON: ABD PELVIS TRANSVAG from 03/02/2014 CT ABDOMEN PELVIS W from 03/16/2018 FINDINGS: LIVER: Normal. There is hepatopetal flow through the portal vein. GALLBLADDER: No evidence of cholelithiasis. No evidence of wall thickening. No pericholecystic fluid identified. KIDNEYS: Kidneys are symmetric in size. No evidence of renal calculi. No evidence of hydronephrosis. No renal mass or cyst identified. BILIARY SYSTEM: Common bile duct measures 2.1 millimeters. No intrahepatic biliary ductal dilation. ALMAZAN'S SIGN: Negative. PANCREAS: Normal where visualized. SPLEEN: Absent. ABDOMINAL AORTA AND IVC: Visualized portions normal caliber. ASCITES: None seen. IMPRESSION: No acute abnormality.
== END 2019-02-22 01:41 ==
PROVIDERS: PCP Family Medicine; Visit Provider Family Medicine
DX: R10.13 Epigastric pain (principal)
CPT/HCPCS: 76700

== ENCOUNTER 2020-01-03 12:14 | Emergency (ER) | payer BC, SELFPAY ==
[2020-01-03 12:23] VITALS: BP 120/83; PULSE 55; RESP 18; TEMP 37.2; O2SAT 98
--- NOTE | 2020-01-03 12:45 | DI.CT_ITS ---
EXAM: CT ABDOMEN PELVIS W CLINICAL HISTORY: pain RLQ to rt flank. TECHNIQUE: Imaging Protocol: Axial computed tomography images with coronal and sagittal reformatted images were created and reviewed CONTRAST MATERIAL: Intravenous: Omnipaque 350 Contrast volume:100 cc Oral: no COMPARISON: CT ABD PELVIS WITH CONTRAST from 03/16/[address] ABDOMEN PELVIS W from 03/16/2018 FINDINGS: ABDOMEN: Lung Bases: Normal where visualized. moderate size hiatal hernia, unchanged. Liver: Normal density. No measurable mass. Gallbladder and biliary tract: No radiodense calculus or dilation. Pancreas: Normal density, no abnormal calcifications or inflammatory process. Spleen: Absent Kidneys: Normal size, contour and axis. No radiodense stones or obstructive uropathy. No masses seen. Two small cysts are again noted on the left kidney. Adrenal glands: No masses seen. Abdominal Aorta: Abdominal portion non-dilated. No significant atherosclerotic changes. There is a small fatty containing umbilical hernia. PELVIS: Bladder: Symmetric distention, no gross wall thickening. Bowel: No obstruction or bowel wall thickening. Normal appendix. Little fecal material is noted. Peritoneal cavity: No ascites, collection. Stable stranding in the mesentery. Bones: Degenerative disc changes at L5-S1. Reproductive organs: Status post hysterectomy. Lymph nodes: No enlarged lymph nodes. Impression: Stable appearance mesenteric haziness. No acute abnormality is identified. RADIATION DOSE DELIVERED: 1,067.54mGy.cm Total DLP DATA REPOSITORY: All CT scans at this facility are submitted to the National Radiology Data Registry (NRDR) Dose Index Registry (DIR) with the [employer] (ACR). RADIATION OPTIMIZATION: All CT scans at this facility use at least one of these dose optimization te chniques: automated exposure control; mA and/or kV adjustment per patient size (includes targeted exa ms where dose is matched to clinical indication); or iterative reconstruction.
--- NOTE | 2020-01-03 12:58 | ED.GENADUL_ITS ---
Discharge Plan Disposition Patient Disposition: HOME Condition: Stable Discharge Details Clinical Impression: Hematuria, Abdominal pain Primary Care Provider: Verónica Dent ED Provider: Gregory Mobley Home Meds and New Rx's Prescriptions: New cephalexin [Keflex] 500 mg capsule 500 mg PO BID Qty: 12 RF: 0 Continued ICaps AREDS 7,160-113-100 byqy-qy-bevs tablet,delayed release (DR/EC) 2 tab PO DAILY RF: 0 epinephrine [EpiPen 2-Silas] 0.3 mg/0.3 mL auto-injector 0.3 mg IM ONCE Qty: 2 RF: 2 ibuprofen 200 MG tablet 200 mg PO PRN RF: 0 calcium carbonate-vitamin D3 [Caltrate with Vitamin D3] 1 EACH tablet 2 ea PO HS RF: 0 cholecalciferol (vitamin D3) 1,000 unit tablet See Rx Instructions PO DAILY RF: 0 levothyroxine 100 mcg tablet 100 mcg PO DAILY Qty: 90 RF: 12 loratadine 10 mg Capsule 10 mg PO HS RF: 0 Discharge Instructions Instructions: Cephalexin (By mouth), Urinary Tract Infection in Women (DC), Hematuria (ED), Abdominal Pain (ED) Additional Instructions: You are being started on an antibiotic to treat potential urinary tract infection. Please take full course of antibiotic as prescribed. Urine culture is pending. Please follow-up with gastroenterology as directed by her general surgeon. Call to confirm appointment. Please contact your primary care physician to arrange follow-up. Return to the ER for any worsening or new concerning symptoms. Referrals: Verónica Dent MD, [place] [Primary Care Provider] - Medical Decision Making 1310??54-year-old female with history of diaphragmatic and ventral hernias, rectal vaginal prolapse, here with persistent right-sided abdominal pain over the past 6 days. Patient is tender in her right mid abdomen. Patient had hematuria noted microscopically on urinalysis today at PCP. Patient has no peritoneal findings. When I push on her upper abdomen she has some discomfort in her right lower abdomen. Plan to obtain CT of the abdomen pelvis to assess for acute surgical pathology including acute appendicitis. We will check labs including LFTs and repeat urinalysis. Bedside lvami-qq-[id number] ultrasound of the right upper quadrant revealed no fluid in Morison's pouch, right kidney slightly dilated with no visualized stone or perinephric fluid, gallbladder with no pericholecystic fluid or stone. 1839??CT of the abdomen pelvis was interpreted by radiology: Stable hazy mesentery, no change compared to prior CT, appendix normal, no acute process identified by radiology. Urine reviewed and continues to have some RBCs and WBCs. Symptoms may be related to a urinary tract infection. Plan to initiate treatment with Keflex and have her follow-up with both her primary care physician and also gastroenterology as previously directed by her surgeon. Results were reviewed with the patient. Discharge instructions discussed with the patient. Patient was encouraged to return for any worsening or new concerning symptoms. HPI General Mode of arrival: ambulatory . Date/Time Provider Initiated Documentation: 01/03/20 12:38 . Limitations to Documentation: no limitations . Information obtained by: patient . HPI Narrative: 54-year-old female with history of diaphragmatic and ventral abdominal hernia, rectal vaginal prolapse, here with chief complaint of abdominal pain. Patient notes right lower abdominal pain radiating to her right flank and right upper abdomen progressive over the past 6 days. Pain is moderate to severe. Sharp. She has associated nausea. No urinary symptoms. She has had some increased flatulence and some loose stools. Patient was seen by primary care physician today and had urinalysis that revealed some red blood cells microscopically. Patient denies recent visible hematuria. Patient was sent by PCP for further evaluation. Related Data Home Medications Medication Instructions Recorded Confirmed ibuprofen 200 mg PO PRN 06/20/12 01/03/20 calcium carbonate-vitamin D3 2 ea PO HS 11/20/14 01/03/20 [Caltrate with Vitamin D3] loratadine 10 mg PO HS 12/24/17 01/03/20 epinephrine 0.3 mg/0.3 mL 0.3 mg IM ONCE #2 each 01/03/18 01/03/20 injection, auto-injector cholecalciferol (vitamin D3) 25 See Rx Instructions PO DAILY 02/10/18 01/03/20 mcg (1,000 unit) tablet vit A 7,160 unit-C 113 mg-E 100 2 tab PO DAILY tab 12/01/18 01/03/20 [id number]-wemj-[id number] tablet,delayed rel. levothyroxine 100 mcg tablet 100 mcg PO DAILY #90 tab-cap 03/16/19 01/03/20 cephalexin [Keflex] 500 mg PO BID #12 cap 10/21/20 Previous Rx's Medication Instructions Recorded epinephrine 0.3 mg/0.3 mL 0.3 mg IM ONCE #2 each 01/03/18 injection, auto-injector levothyroxine 100 mcg tablet 100 mcg PO DAILY #90 tab-cap 03/16/19 cephalexin [Keflex] 500 mg PO BID #12 cap 01/03/20 Allergies Allergy/AdvReac Type Severity Reaction Status Date / Time bee pollen Allergy Unknown Verified 01/03/20 12:26 aspartame AdvReac Intermediate Dizziness Verified 01/03/20 12:26 hydrocodone AdvReac Intermediate nausea Verified 01/03/20 12:26 lactose AdvReac Unknown Verified 01/03/20 12:26 oxycodone AdvReac Unknown dizziness, Verified 01/03/20 12:26 nausea tetanus and diphtheria AdvReac TOLERATES Verified 01/03/20 12:26 toxoids ONE HALF DOSE dust AdvReac Intermediate congestion Uncoded 01/03/20 12:26 General Stated Complaint: Abd Prob RICHI: 3 Review of Systems All systems reviewed & are unremarkable except as noted in HPI and below Constitutional Constitutional: Denies fever(s) Gastrointestinal Gastrointestinal: Reports as per HPI Genitourinary Genitourinary: Reports as per HPI and Denies dysuria PFSH Medical History Abnormal mammography Anxiety Epigastric abdominal pain Finger fracture, left (~1974) 5TH FINGER Hematuria (03/13/14) History of migraine History of reactive airway disease Hypothyroidism (12/09/09) Lactose intolerance Low back pain Herniated Nucleus Pulposus Migraine Mononucleosis syndrome (04/16/05) Plantar fasciitis Plantar fasciitis RLQ abdominal pain Tachycardia (11/20/14) Tachycardia (11/20/14) Surgical History Arthroplasty of knee LEFT History of arthroscopy of knee History of bilateral ligation of fallopian tubes Ligation of fallopian tube BSO Meniscectomy Old anterior cruciate ligament disruption (09/19/12) LEFT KNEE WITH JOINT ADHEASIONS AND CHONDROMALACIA; DR. BHATTI Repair, ACL (09/21/12) WITH LATERAL MENISCAL REPAIR Status post meniscectomy Status post repair of anterior cruciate ligament Status post vaginal hysterectomy Vaginal hysterectomy PARTIAL Family History Mother Essential hypertension Osteoporosis Cancer Father Diabetes Essential hypertension Heart disease Hyperlipidemia Stroke Sister No problems noted. Sister No problems noted. Sister No problems noted. Brother No problems noted. Brother No problems noted. Son No problems noted. Daughter No problems noted. Daughter No problems noted. Maternal Grandfather No problems noted. Paternal Grandfather No problems noted. Maternal Grandmother No problems noted. 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 Pets and animals: Yes Pets and animals: cat(s), dog(s) and other Details: r abbits Sexually active: Yes Do you think of yourself as: straight/heterosexual Current gender identity: female What is your relationship status?: How often do you talk on the phone with friends or family?: three or more times per week How often do you get together with friends or relatives?: once per week How often do you attend adventist or rastafari services?: decline to answer Do you belong to any clubs or organized social groups?: decline to answer Panel score (0-1 are the most socially isolated patients): 2 What type of physical activity do you participate in: walking Brianna/Catholic: Religious Special brianna needs: No Seatbelt use: always Drive intox or ride w/intox city bus driver: No Do you feel safe in your relationship?: Yes Exam Const General: cooperative and no acute distress HENMT Mouth: moist mucous membranes Eyes Conjunctivae: normal conjunctivae Sclera: normal sclerae Neck Neck: trachea midline and supple Resp Auscultation: clear to auscultation bilaterally, no rales, no rhonchi and no wheezes Cardio Jugular venous pressure: no JVD Rate: regular rate and not tachycardic Rhythm: regular rhythm GI Palpation: soft, not firm, no guarding, no masses, not rigid and tender other (Right abdomen) Skin General skin exam: no rashes or lesions noted Neuro General: patient alert, patient awake, patient oriented x3 and tone normal Extrem General: no edema Psych Appearance: grossly normal Mental Status: mental status grossly normal Course Vital Signs Vital signs: Vital Signs Temperature 37.2 C 01/03/20 12:23 Pulse 55 L 01/03/20 12:23 Respiratory Rate 18 01/03/20 12:23 Blood Pressure 120/83 01/03/20 12:23 Pulse Oximetry 98 01/03/20 12:23 Temperature 37.2 C 01/03/20 12:23 Temperature Source Skin 01/03/20 12:23 Pulse 55 L 01/03/20 12:23 Respiratory Rate 18 01/03/20 12:23 Respiratory Effort Non-Labored 01/03/20 12:28 Blood Pressure 120/83 01/03/20 12:23 Blood Pressure Position Sitting 01/03/20 12:23 Pulse Oximetry 98 01/03/20 12:23 Oxygen Delivery Method Room Air 01/03/20 12:23 Oxygen Flow Rate 0 01/03/20 12:23 Pain Level 7 01/03/20 12:23
[2020-01-03 13:02] LABS: Bilirubin Negative (Negative); Blood Moderate (Negative); Clarity Sl Cloudy (Clear); Glucose Negative (Negative); Ketones Trace mg/dL (Negative); Leukocyte Esterase Trace (Negative); Nitrite Negative (Negative); Specific Gravity >= 1.030 (1.005-1.025); Urobilinogen 0.2 EU/dL (Up TO 0.2); pH 5.5 (5-8)
[2020-01-03 13:11] LABS: Abs Immature Grans 0.02 10^3/uL (0.0-0.06); Absolute Basophil Count 0.07 10^3/uL (0.0-0.2); Absolute Eosinophil Count 0.29 10^3/uL (0.0-0.7); Absolute Lymphocyte Count 1.53 10^3/uL (1.2-3.4); Absolute Monocyte Count 1.14 10^3/uL (0.1-0.8); Absolute Neutrophil Count 4.62 10^3/uL (1.2-6.7); Basophils % 0.9; Eosinophils % 3.8; HCT 43.8 % (36.0-46.0); HGB 14.2 g/dL (11.2-15.7); Immature Grans % 0.3; Lymphocytes % 19.9; MCH 29.2 pg (27.0-33.0); MCHC 32.4 % (32.0-36.0); MCV 89.9 fL (80-95); MPV 10.8 fL (8.0-11.0); Monocytes % 14.9; Neutrophils % 60.2; Nucleated RBC 0 %; Platelet Count 373 10^3/uL (130-400); RBC 4.87 10^6/uL (3.93-5.22); RDW-SD 46.5 fL; WBC 7.67 10^3/uL (4.4-10.8)
[2020-01-03 13:16] LABS: ALT 14 U/L (14-59); AST 16 U/L (15-37); Albumin 3.5 g/dL (3.4-5.0); Alkaline Phosphatase 92 U/L (46-116); Anion Gap 4.1 mmol/L (3-11); BUN 21 mg/dL (7-18); Bilirubin, Total 0.4 mg/dL (0.2-1.0); CO2 29.9 mmol/L (21.0-32.0); CREATININE 0.76 mg/dL (0.55-1.02); Chloride 105 mmol/L (98-107); Glucose 89 mg/dL (74-106); Lipase 70 U/L (73-393); Potassium 3.5 mmol/L (3.5-5.1); Sodium 139 mmol/L (136-145); Total Protein 7.6 g/dL (6.4-8.2)
[2020-01-03 13:21] LABS: Calcium 8.9 mg/dL (8.5-10.1)
[2020-01-03 13:22] LABS: Bacteria Few HPF (Negative); C & S Indicated? No/Sq. Contamination; Casts Negative LPF (Negative); Crystals Negative HPF (Negative); Epithelial Cells Many HPF (Negative); Mucus Trace (Negative); Other Cells Negative (Negative); RBC 20-50 HPF (0-2)
[2020-01-03 13:48] VITALS: BP 130/87; PULSE 80; RESP 18; TEMP 36.7; O2SAT 98
[2020-01-03] MEDS: Omnipaque 350 MG/ML 100 ML BTL IJ (14:52)
[2020-01-03] MEDS: Normal Saline Flush 10 ML SYR IVP (14:53)
[2020-01-03] MEDS: Normal Saline - Diluent 50 ML VIAL IV (14:54)
[2020-01-03] MEDS: Cephalexin 500 MG CAP PO ×2 (15:39)
[2020-01-03 15:48] VITALS: TEMP 36.8
== END 2020-01-03 15:55 | disposition home or self-care (01) ==
PROVIDERS: Emergency Provider Student in an Organized Health Care Education/Training Program; PCP Family Medicine
DX: N39.0 Urinary tract infection, site not specified (principal); R10.11 Right upper quadrant pain; R10.31 Right lower quadrant pain; R11.0 Nausea
CPT/HCPCS: 36415; 80053; 83690; 99285; 74177; 81003; 81015; 85025; 99284; J3490

== ENCOUNTER 2020-01-03 12:52 | Emergency (ER) | payer SELFPAY ==
--- NOTE | 2020-01-03 13:17 | NUR.NOTE ---
Nursing Note: This account was entered in error by Nadia Martínez
== END 2020-01-03 12:58 | disposition other institution (70) ==
LOC: ER 12:55
PROVIDERS: Emergency Provider Student in an Organized Health Care Education/Training Program; PCP Family Medicine; Visit Provider Nurse Practitioner Family
DX: R69 Illness, unspecified (principal)
CPT/HCPCS: 87086

== ENCOUNTER 2020-01-03 13:06 | Outpatient (REF) | payer BC, SELFPAY | END 2020-01-03 13:26 | LOC: LBN 13:06 | PROVIDERS: PCP Family Medicine; Visit Provider Nurse Practitioner Family | DX: R82.998 Other abnormal findings in urine (principal) | CPT/HCPCS: 87086 ==

== ENCOUNTER 2020-01-18 13:29 | Outpatient (REF) | payer BC, SELFPAY ==
[2020-01-18 20:52] LABS: Bilirubin Negative (Negative); Blood Small (Negative); Clarity Clear (Clear); Glucose Negative (Negative); Ketones Negative (Negative); Leukocyte Esterase Negative (Negative); Nitrite Negative (Negative); Urobilinogen 0.2 EU/dL (Up TO 0.2); pH 5.5 (5-8)
[2020-01-18 21:04] LABS: Bacteria Rare HPF (Negative); C & S Indicated? No/Sq. Contamination; Casts Negative LPF (Negative); Crystals Negative HPF (Negative); Epithelial Cells Moderate HPF (Negative); Mucus Negative (Negative); RBC 0-2 HPF (0-2); WBC 0-2 HPF (0-5)
== END 2020-01-18 13:49 ==
LOC: LBN 13:29
PROVIDERS: PCP Family Medicine; Visit Provider Family Medicine
DX: R31.9 Hematuria, unspecified (principal)
CPT/HCPCS: 81003; 81015

== ENCOUNTER 2020-02-15 11:49 | Outpatient (CLI) | payer BC, SELFPAY ==
[2020-02-15 12:32] LABS: HCT 43.2 % (36.0-46.0); MCH 28.8 pg (27.0-33.0); MCHC 32.4 % (32.0-36.0); MCV 88.9 fL (80-95); MPV 11.2 fL (8.0-11.0); Platelet Count 383 10^3/uL (130-400); RBC 4.86 10^6/uL (3.93-5.22); RDW 13.6 % (11.7-14.6); RDW-SD 44.4 fL; WBC 7.79 10^3/uL (4.4-10.8)
[2020-02-15 13:29] LABS: Hemoglobin A1C 5.9 % (<5.7)
[2020-02-15 13:34] LABS: ALT 20 U/L (14-59); AST 17 U/L (15-37); Albumin 3.9 g/dL (3.4-5.0); Alkaline Phosphatase 109 U/L (46-116); Anion Gap 5.5 mmol/L (3-11); BUN 16 mg/dL (7-18); Bilirubin, Total 0.6 mg/dL (0.2-1.0); CO2 31.5 mmol/L (21.0-32.0); CREATININE 0.82 mg/dL (0.55-1.02); Calcium 9.2 mg/dL (8.5-10.1); Calculated LDL 188 mg/dL (<100); Chloride 101 mmol/L (98-107); Cholesterol 251 mg/dL (<200); Glucose 97 mg/dL (74-106); HDL Cholesterol 48 mg/dL (40-60); Potassium 4.4 mmol/L (3.5-5.1); Sodium 138 mmol/L (136-145); TSH (W/Ref FT4) 3.29 uIU/mL (0.36-3.74); Total Protein 7.8 g/dL (6.4-8.2); Triglyceride 79 mg/dL (<150)
[2020-02-15 13:47] LABS: Vitamin D 25 Total 54.3 ng/ml (30-100)
== END 2020-02-15 12:09 ==
PROVIDERS: PCP Family Medicine; Visit Provider Family Medicine
DX: E03.9 Hypothyroidism, unspecified (principal); R00.0 Tachycardia, unspecified; Z00.00 Encounter for general adult medical examination without abnormal findings; E11.9 Type 2 diabetes mellitus without complications
CPT/HCPCS: 36415; 80053; 80061; 82306; 85027; 83036; 84443

== ENCOUNTER 2020-02-26 10:28 | Outpatient (CLI) | payer BC, SELFPAY ==
[2020-02-27 15:21] LABS: COVID-19 RT-PCR UVMMC Result Negative (Negative)
== END 2020-02-26 10:48 ==
PROVIDERS: PCP Family Medicine; Visit Provider Family Medicine
DX: Z20.828 Contact with and (suspected) exposure to other viral communicable diseases (principal); Z11.59 Encounter for screening for other viral diseases
CPT/HCPCS: U0003

== ENCOUNTER 2020-04-03 01:56 | Outpatient (CLI) | payer BC, SELFPAY ==
--- NOTE | 2020-04-03 | DI.MAMMO_ITS ---
EXAM: MG MAMMO SCREENING CLINICAL HISTORY: SCREENING, 12.39 TECHNIQUE: Bilateral full field digital CC and MLO mammographic images were obtained with 3D tomosyn thesis and utilizing computer aided detection (CAD). COMPARISON: Available for comparison. FINDINGS: The patient allowed for very little compression. Masses/Architectural Distortion: None seen. Microcalcifications: No suspicious pleomorphic-type are seen. Skin Thickening/Nipple Retraction: None. IMPRESSION: 1. No significant interval change with no specific features of malignancy noted. 2. Unless there is more urgent need, screening mammography is recommended, as per [employer] guidelines. BI-RADS Category 1 - Negative Breast Density - Category C - Heterogeneously dense Breast density category C or D implies that the patient has dense breast tissue. Dense breast tissue is very common and is not abnormal but dense breast tissue can make it harder to find cancer on a ma mmogram. Also, dense breast tissue may increase their breast cancer risk. This information about the result of the mammogram report was provided to the patient to raise their awareness. Use this report when you speak with the patient about their risks for breast cancer, which includes their family hist ory. At that time, you may recommend for more screening tests (Ultrasound or MRI) as they might be us eful based on their risk. A negative radiographic report should not delay biopsy if a dominant or clinically suspicious mass is present. Up to ten percent of cancers are not identified on mammography. A negative report may reinforce clinical impression. Adenosis and dense breasts may obscure an underlying neoplasm. False positive reports average 6 to 10%. Patient will receive a letter notifying them of these results.
== END 2020-04-03 02:16 ==
PROVIDERS: PCP Family Medicine; Visit Provider Family Medicine
DX: Z12.31 Encounter for screening mammogram for malignant neoplasm of breast (principal)
CPT/HCPCS: 77063; 77067

== ENCOUNTER 2020-04-05 02:03 | Outpatient (CLI) | payer BC, SELFPAY ==
[2020-04-06 16:58] LABS: COVID-19 RT-PCR Result NEGATIVE (Negative)
== END 2020-04-05 02:23 ==
PROVIDERS: PCP Family Medicine; Visit Provider Family Medicine
DX: Z20.822 Contact with and (suspected) exposure to COVID-19 (principal)
CPT/HCPCS: U0003

== ENCOUNTER 2020-09-06 20:29 | Emergency (ER) | payer BC, SELFPAY ==
--- NOTE | 2020-09-06 20:30 | DI.RAD_ITS ---
Exam(s) XR ANKLE RT COMPLETE EXAM: XR ANKLE RT COMPLETE CLINICAL HISTORY: R/O Fracture. TECHNIQUE: 2D digital imaging was performed. COMPARISON: No exams were available for comparison FINDINGS: There is no oblique fractures through the distal fibula lateral malleolus region with significant wid ening of the mortise. There is also an avulsion fracture off the inferior medial malleolus evident. This triangular fracture fragment measures 4.5 x 3 0.5 cc millimeters. There is widening of the mor tise. Talar dome is intact. Subtalar joint appears unremarkable. Inferior calcaneal spur measuring 5 millimeters is noted IMPRESSION: there is fracture of the distal fibula as described above as well as avulsion fracture of the medial malleolus tip. There is widening of the mortise evident. DATA REPOSITORY: RADIATION DOSE DELIVERED:
[2020-09-06 20:43] VITALS: BP 145/68; PULSE 87; RESP 22; TEMP 36.7; O2SAT 98
--- NOTE | 2020-09-06 21:26 | DI.VRAD_ITS ---
PROCEDURE INFORMATION: Exam: XR Right Ankle Exam date and time: 09/06/2020 8:41 PM Age: 55 years old Clinical indication: Patient HX: Right ankle pain, PT fell sideways down a hill. TECHNIQUE: Imaging protocol: XR Right ankle. Views: 3 or more views. COMPARISON: No relevant prior studies available. FINDINGS: Bones/joints: Avulsion fracture of the medial malleolus. Widening of the ankle mortise. Fracture of the right distal fibula at the level of syndesmosis. Plantar calcaneal spurring. Soft tissues: Soft tissue swelling. IMPRESSION: Fracture of right distal fibula at the level of syndesmosis, fracture of the medial malleolus, avulsion, widening of the ankle mortise. Dictated and Authenticated by: Rodri Rivas MD. Ordering:GUSTABO Curry MD
--- NOTE | 2020-09-06 21:36 | ED.GENADUL_ITS ---
Discharge Plan Disposition Patient Disposition: HOME Condition: Stable Discharge Details Clinical Impression: Closed right ankle fracture Primary Care Provider: Verónica Dent ED Provider: Antoinette Burris Home Meds and New Rx's Prescriptions: New acetaminophen-codeine 300-15 mg tablet 1 tab PO Q8H PRN (Reason: pain) 3 Days Qty: 7 RF: 0 No Action ICaps AREDS 7,160-113-100 [id number]-[id number] tablet,delayed release (DR/EC) 2 tab PO DAILY RF: 0 epinephrine [EpiPen 2-Silas] 0.3 mg/0.3 mL auto-injector 0.3 mg IM ONCE Qty: 2 RF: 2 levothyroxine 100 mcg tablet 100 mcg PO DAILY Qty: 90 RF: 12 metoprolol succinate 25 mg tablet extended release 24 hr 25 mg PO DAILY Qty: 30 RF: 12 ibuprofen 200 MG tablet 200 mg PO PRN RF: 0 calcium carbonate-vitamin D3 [Caltrate with Vitamin D3] 1 EACH tablet 2 ea PO HS RF: 0 cholecalciferol (vitamin D3) 1,000 unit tablet See Rx Instructions PO DAILY RF: 0 loratadine 10 mg Capsule 10 mg PO HS RF: 0 Discharge Instructions Instructions: Ankle Fracture (ED) Additional Instructions: Non-weight bearing until follow-up with orthopedics. Please call [facility] in the next 2 to 3 days. Call on Wednesday morning for not hear from them before then. Rest, ice, compression, elevation. Wear the walking boot for stabilization until follow-up with Ortho. Please take Tylenol or Ibuprofen with food every 4-6 hours as needed for pain and swelling. Stand Alone Forms: Work Release Referrals: Mc Quintana MD [ [facility] STAFF PHYSICIAN] - 1 week (Right ankle Fracture) Medical Decision Making 55-year-old female presents to the ER with chief complaint of right ankle pain status post mechanical fall prior to arrival. Patient states that she heard a snap. She has her right ankle outturned. Distal CMS is intact dorsal pedal pulses intact cap refill less than 2 seconds. Distal sensation is intact Patient was given oxycodone 5 mg, 1% lidocaine with hematoma block, ice while here in department. This improved her symptoms somewhat Imaging protocol: XR Right ankle. Views: 3 or more views. COMPARISON: No relevant prior studies available. FINDINGS: Bones/joints: Avulsion fracture of the medial malleolus. Widening of the ankle mortise. Fracture of the right distal fibula at the level of syndesmosis. Plantar calcaneal spurring. Soft tissues: Soft tissue swelling. IMPRESSION: Fracture of right distal fibula at the level of syndesmosis, fracture of the medial malleolus, avulsion, widening of the ankle mortise. Patient was placed in a walking boot by myself with mild manipulation of the ankle. Patient did not tolerate walking boot with assistance by staff physical therapy assistant up to the bathroom via wheelchair and crutches. Patient complaining of increased pain with walking boot. Stirrups Ortho splint applied by myself. Circulation, sensation movement intact distally post splint application. Patient tolerated this much better. Discussed follow-up with orthopedics in 3 to 5 days. Was given Tylenol with codeine patient request upon discharge. Instructed on RICE procedures and strict return instructions. HPI General Mode of arrival: wheelchair . Date/Time Provider Initiated Documentation: 09/06/20 20:39 . Limitations to Documentation: no limitations . Information obtained by: patient . HPI Narrative: 55-year-old female presents to the ER with chief complaint of right ankle pain status post mechanical fall prior to arrival. Patient states that she heard a snap. She has her right ankle outturned. Distal CMS is intact dorsal pedal pulses intact cap refill less than 2 seconds. Distal sensation is intact Related Data Home Medications Medication Instructions Recorded Confirmed ibuprofen 200 mg PO PRN 06/20/12 02/15/20 calcium carbonate-vitamin D3 2 ea PO HS 11/20/14 02/15/20 [Caltrate with Vitamin D3] loratadine 10 mg PO HS 12/24/17 02/15/20 cholecalciferol (vitamin D3) 25 See Rx Instructions PO DAILY 02/10/18 02/15/20 mcg (1,000 unit) tablet vit A 7,160 unit-C 113 mg-E 100 2 tab PO DAILY tab 12/01/18 02/15/20 [id number] tablet,delayed rel. epinephrine 0.3 mg/0.3 mL 0.3 mg IM ONCE #2 each 02/15/20 02/15/20 injection, auto-injector levothyroxine 100 mcg tablet 100 mcg PO DAILY #90 tab-cap 02/15/20 02/15/20 metoprolol succinate 25 mg 25 mg PO DAILY #30 tab 02/15/20 02/15/20 tablet,extended release 24 hr acetaminophen-codeine 1 tab PO Q8H PRN 3 Days #7 tab 09/06/20 Previous Rx's Medication Instructions Recorded epinephrine 0.3 mg/0.3 mL 0.3 mg IM ONCE #2 each 02/15/20 injection, auto-injector levothyroxine 100 mcg tablet 100 mcg PO DAILY #90 tab-cap 02/15/20 metoprolol succinate 25 mg 25 mg PO DAILY #30 tab 02/15/20 tablet,extended release 24 hr acetaminophen-codeine 1 tab PO Q8H PRN 3 Days #7 tab 09/06/20 Allergies Allergy/AdvReac Type Severity Reaction Status Date / Time bee pollen Allergy Unknown Verified 02/15/20 11:01 aspartame AdvReac Intermediate Dizziness Verified 02/15/20 11:01 hydrocodone AdvReac Intermediate nausea Verified 02/15/20 11:01 lactose AdvReac Unknown Verified 02/15/20 11:01 oxycodone AdvReac Unknown dizziness, Verified 02/15/20 11:01 nausea tetanus and diphtheria AdvReac TOLERATES Verified 02/15/20 11:01 toxoids ONE HALF DOSE dust AdvReac Intermediate congestion Uncoded 02/15/20 11:01 General Stated Complaint: Orthopedic RICHI: 4 Review of Systems All systems reviewed & are unremarkable except as noted in HPI and below Musculoskeletal Musculoskeletal: Reports as per HPI, Reports deformity (Right ankle), Reports arthralgias, Reports joint swelling and Reports limited range of motion [facility] Medical History (Updated 09/06/20 @ 23:06 by Antoinette Burris) Abnormal mammography Anxiety Epigastric abdominal pain Finger fracture, left (~1974) 5TH FINGER Hematuria (03/13/14) History of migraine History of reactive airway disease Hypothyroidism (12/09/09) Lactose intolerance Low back pain Herniated Nucleus Pulposus Migraine Mononucleosis syndrome (04/16/05) Plantar fasciitis Plantar fasciitis RLQ abdominal pain Tachycardia (11/20/14) supraventricular tachycardia 82 episodes/24 hrs see holter Tachycardia (11/20/14) Surgical History Arthroplasty of knee LEFT History of arthroscopy of knee History of bilateral ligation of fallopian tubes Ligation of fallopian tube BSO Meniscectomy Old anterior cruciate ligament disruption (09/19/12) LEFT KNEE WITH JOINT ADHEASIONS AND CHONDROMALACIA; DR. BHATTI Repair, ACL (09/21/12) WITH LATERAL MENISCAL REPAIR Status post meniscectomy Status post repair of anterior cruciate ligament Status post vaginal hysterectomy Vaginal hysterectomy PARTIAL Family History Mother Essential hypertension Osteoporosis Cancer Father Diabetes Essential hypertension Heart disease Hyperlipidemia Stroke Sister No problems noted. Sister No problems noted. Sister No problems noted. Brother No problems noted. Brother No problems noted. Son No problems noted. Daughter No problems noted. Daughter No problems noted. Maternal Grandfather No problems noted. Paternal Grandfather No problems noted. Maternal Grandmother No problems noted. 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 Pets and animals: Yes Pets and animals: cat(s), dog(s) and other Details: rabbits Sexually active: Yes Do you think of yourself as: straight/heterosexual Current gender identity: female What is your relationship status?: How often do you talk on the phone with friends or family?: three or more times per week How often do you get together with friends or relatives?: once per week How often do you attend presybeterian or buddhism services?: decline to answer Do you belong to any clubs or organized social groups?: no Panel score (0-1 are the most socially isolated patients): 2 Frequency: daily Brianna/Adventism: Jew Special brianna needs: No Seatbelt use: always Drive intox or ride w/intox bus driver/monitor: No Do you feel safe at home: Yes Do you feel safe in your relationship?: Yes Victim of physical abuse: No Victim of emotional abuse: No Victim of sexual abuse: No Would you like helpful sources: No Exam Narrative Exam Narrative: General: Well Developed, Awake and Alert, conversant. Skin: Warm and Dry HEENT: Head: No palpable deformities, Normocephalic Eyes: Pupils PERRLA, EOM's intact. No periorbital eccymosis or step off Ears: Canal patent. Tympanic membranes are clear . No cardona's sign, no hemptympanum. Nose/Face: Atraumatic. Facial bones nontender to palpation and stable with manipulation. Mouth/Throat: No intraoral trauma. Teeth and mandible are intact. Neck: No midline tenderness, no step off, no deformity to palpation of C-spine. Trachea midline. Chest: No surface trauma. Nontender without crepitus or deformity. Lungs clear to ausculatation bilaterally. Heart: RRR, no rubs, murmurs or gallop. Abdomen: No abrasions, ecchymosis, or surface trauma. Nondistended. Nontender to palpation no guarding, rebound, or rigidity. Pelvis: Nontender to palpation and stable to compression. Femoral pulses strong and equal Extremities no surface trauma. Sensation intact. Peripheral pulses intact and equal. Right ankle swollen, tenderness over the medial and lateral malleolus. Dorsal pedal pulses intact, cap refill distally less than 2 seconds foot is warm to touch. No tenderness noted to the knee or proximal tib-fib. No other signs of injury. Neuro: ANO x4, GCS 15, cranial nerves II through XII intact. Motor and sensory exam nonfocal. Reflexes are symmetric. Course Vital Signs Vital signs: Vital Signs Temperature 36.7 C 09/06/20 20:43 Pulse 87 09/06/20 20:43 Respiratory Rate 22 09/06/20 20:43 Blood Pressure 145/68 H 09/06/20 20:43 Pulse Oximetry 98 09/06/20 20:43 Temperature 36.7 C 09/06/20 20:43 Temperature Source Temporal Artery Scan 09/06/20 20:43 Pulse 87 09/06/20 20:43 Respiratory Rate 22 09/06/20 20:43 Respiratory Effort Non-Labored 09/06/20 20:46 Blood Pressure 145/68 H 09/06/20 20:43 Blood Pressure Position Sitting 09/06/20 20:43 Pulse Oximetry 98 09/06/20 20:43 Oxygen Delivery Method Room Air 09/06/20 20:43 Oxygen Flow Rate 0 09/06/20 20:43 Pain Level 10 09/06/20 20:43 Procedures Nerve Block Nerve Block 1: Time out performed: No Local Anesthetic: Lidocaine 1% Amount of anesthesia used (mL): 5 Side: right Nerve Blocks: hematoma block (Right Ankle) Procedure Successful: Yes Patient Tolerated Procedure: well Complications: none Orthopedic Splinting/Casting Injury #1: Side: right Lower Extremity Injury Location: ankle Lower Extremity Immobilizer: stirrup splint Other Orthopedic Equipment: crutches
[2020-09-06] MEDS: Ondansetron O.D.T. 4 MG TABEF PO (21:50)
[2020-09-06] MEDS: oxyCODONE 5 MG TAB PO (21:50)
--- NOTE | 2020-09-07 12:28 | NUR.NOTE ---
Nursing Note: 1235--[id number] Vania Purdy called to say yLn's foot is feeling numb and splint is feeling tight--Per Dr Barrios-loosen alonso bandage to see if numbness resolves--if not come back to ER for a recheck.
== END 2020-09-06 23:55 | disposition home or self-care (01) ==
PROVIDERS: Emergency Provider Registered Nurse Emergency; PCP Family Medicine
DX: S82.891A Other fracture of right lower leg, initial encounter for closed fracture (principal); W18.39XA Other fall on same level, initial encounter
CPT/HCPCS: 29515; 99283; 73610

== ENCOUNTER 2020-09-11 10:06 | Outpatient (CLI) | payer BC, SELFPAY ==
--- NOTE | 2020-09-11 10:00 | DI.RAD_ITS ---
Exam(s) XR ANKLE RT COMPLETE EXAM: XR ANKLE RT COMPLETE CLINICAL HISTORY: F/u. TECHNIQUE: 2D digital imaging was performed. COMPARISON: CR,XR XR ANKLE RT COMPLETE from 09/06/2020 FINDINGS: Three in cast views compared to 09/06/2020 reveal unchanged alignment of fracture site in the distal fibula and some widening of the mortise again noted. Avulsion fracture off the tip of the medial mal leolus is also again noted. Talar dome appears intact. Inferior calcaneal spur noted. There is no evidence of osseous tarsal coalition. IMPRESSION: DATA REPOSITORY: RADIATION DOSE DELIVERED:
== END 2020-09-11 10:07 | disposition home or self-care (01) ==
LOC: DIORS 10:06
PROVIDERS: PCP Family Medicine; Referring Provider Family Medicine; Visit Provider Student in an Organized Health Care Education/Training Program
DX: S82.51XD Displaced fracture of medial malleolus of right tibia, subsequent encounter for closed fracture with routine healing (principal); S82.831D Other fracture of upper and lower end of right fibula, subsequent encounter for closed fracture with routine healing; M77.31 Calcaneal spur, right foot; X58.XXXD Exposure to other specified factors, subsequent encounter
CPT/HCPCS: 73610

== ENCOUNTER 2020-09-11 10:28 | Outpatient (CLI) | payer BC, SELFPAY ==
[2020-09-11 11:52] LABS: Source Nasal/Nares
[2020-09-11 14:11] LABS: COVID-19 PCR Negative (Negative)
== END 2020-09-11 10:29 | disposition home or self-care (01) ==
PROVIDERS: PCP Family Medicine; Visit Provider Student in an Organized Health Care Education/Training Program
DX: Z20.822 Contact with and (suspected) exposure to COVID-19 (principal); Z01.818 Encounter for other preprocedural examination
CPT/HCPCS: 87635

== ENCOUNTER 2020-09-13 08:59 | Day surgery (SDC) | payer BC, SELFPAY ==
--- NOTE | 2020-09-11 09:57 | W.ANESCON ---
General Date of Service Date of Service: 09/11/20 Reason for Consult Requesting Provider: Canelo Frazier How Consult Conducted:: Chart Review Reason for Consult:: tachycardia,hypothyroid, lumbar and abdominal pain, anxiety Consult Recommendation after Review:: Cardiac event monitor in 2018 showed symptomatic paroxysmal supraventricular tachycardia. Per Dr. Dent's note on 02/15/20 she was continuing with palpitations so she was started on Metoprolol. She also mentioned the stomach issues that she was having and that patient was adjusting her diet. We are good to proceed with the scheduled procedure and we will address any anxiety issues on day of surgery. Meds Allergies and Home Medications Allergies Allergy/AdvReac Type Severity Reaction Status Date / Time bee pollen Allergy Unknown Verified 09/11/20 10:00 adhesive AdvReac Intermediate Rash Verified 09/11/20 10:00 adhesive tape AdvReac Intermediate Rash Verified 09/11/20 10:00 aspartame AdvReac Intermediate Dizziness Verified 09/11/20 10:00 hydrocodone AdvReac Intermediate nausea Verified 09/11/20 10:00 lactose AdvReac Unknown Verified 09/11/20 10:00 oxycodone AdvReac Unknown dizziness, Verified 09/11/20 10:00 nausea tetanus and diphtheria AdvReac TOLERATES Verified 09/11/20 10:00 toxoids ONE HALF DOSE dust AdvReac Intermediate congestion Uncoded 09/11/20 10:00 Home Medication Medication Instructions Recorded ibuprofen 200 mg PO PRN 06/20/12 calcium carbonate-vitamin D3 2 ea PO HS 11/20/14 [Caltrate with Vitamin D3] loratadine 10 mg PO HS 12/24/17 cholecalciferol (vitamin D3) 25 See Rx Instructions PO DAILY 02/10/18 mcg (1,000 unit) tablet vit A 7,160 unit-C 113 mg-E 100 2 tab PO DAILY tab 12/01/18 [id number] tablet,delayed rel. epinephrine 0.3 mg/0.3 mL 0.3 mg IM ONCE #2 each 02/15/20 injection, auto-injector levothyroxine 100 mcg tablet 100 mcg PO DAILY #90 tab-cap 02/15/20 metoprolol succinate 25 mg 25 mg PO DAILY #30 tab 02/15/20 tablet,extended release 24 hr ascorbic acid (vitamin C) 500 mg 500 mg PO DAILY 09/11/20 capsule,extended release zinc 50 mg tablet 50 mg PO DAILY 09/11/20 [facility] Active Problems Active Problems: Problem Status Onset Code Closed right ankle fracture S82.891A Rectal prolapse K62.3 Facet arthritis, degenerative, L5-S1 level, lumbosacral spine M47.817 Abdominal pain R10.9 Hernia K46.9 Left leg pain M79.605 Menopausal symptoms N95.1 Tinnitus H93.19 Tachycardia 11/20/14 R00.0 Seasonal allergies 10/20/17 J30.2 Plantar fasciitis M72.2 Migraine G43.909 Low back pain M54.5 Lactose intolerance E73.9 Increased body mass index R63.8 Hypothyroidism 12/09/09 E03.9 Elevated blood pressure reading 02/13/14 R03.0 Anxiety F41.9 Annual physical exam 12/23/15 Z00.00 Medical History Medical History (Updated 09/11/20 @ 10:04 by Canelo Frazier MD) Abnormal mammography Anxiety Epigastric abdominal pain Finger fracture, left (~1974) 5TH FINGER Hematuria (03/13/14) History of migraine History of reactive airway disease Hypothyroidism (12/09/09) Lactose intolerance Low back pain Herniated Nucleus Pulposus Migraine Mononucleosis syndrome (04/16/05) Plantar fasciitis Plantar fasciitis RLQ abdominal pain Tachycardia (11/20/14) supraventricular tachycardia 82 episodes/24 hrs see holter Tachycardia (11/20/14) Surgical History Surgical History Arthroplasty of knee LEFT History of arthroscopy of knee History of bilateral ligation of fallopian tubes Ligation of fallopian tube BSO Meniscectomy Old anterior cruciate ligament disruption (09/19/12) LEFT KNEE WITH JOINT ADHEASIONS AND CHONDROMALACIA; DR. BHATTI Repair, ACL (09/21/12) WITH LATERAL MENISCAL REPAIR Status post meniscectomy Status post repair of anterior cruciate ligament Status post vaginal hysterectomy Vaginal hysterectomy PARTIAL Tobacco Smoking/Tobacco Use Status: Never Passive smoking exposure: Yes Alcohol Alcohol Intake: never Vital Signs & Lab Results Point of Care Results Nursing Point of Care Results: No Data to Display Lab Results Blood Type / Crossmatch: No Data to Display Complete Blood Count: No Data to Display Complete Metabolic Panel: No Data to Display Liver Function Panel: No Data to Display Coagulation Panel: No Data to Display Cardiac Panel: No Data to Display Arterial Blood Gas: No Data to Display Venous Blood Gas: No Data to Display Pancreas Panel: No Data to Display Thyroid Panel: No Data to Display Infectious Disease: No Data to Display Blood Cultures: No Data to Display Toxicology Panel: No Data to Display Imaging and Studies Imaging and Studies Other Study Summary:: Cardiac Event Monitor 01/19/18 The predominant underlying rhythm was sinus rhythm. Average heart rate in sinus rhythm 76 beats per minute, range of 47 to 151 beats per minute. There was occasional supraventricular ectopy, 1.3% PACs. There were 82 episodes of supraventricular tachycardia, average heart rate 137 beats per minute, range 70 to 280 beats per minute. The longest episode lasted 28 seconds. There was no ventricular tachycardia. There were no pauses greater than 3 seconds. There was no higher-degree heart block. There were 8 patient events, 6 events correlated with supraventricular tachycardic, all other events did not correlate with arrhythmia. FINAL INTERPRETATION Symptomatic paroxysmal supraventricular tachycardia.
[2020-09-13] VITALS (12 sets, daily range): BP systolic 131–154; BP diastolic 76–93; PULSE 63–88; RESP 12–24; TEMP 36.3–36.7; O2SAT 93–99; BMI 32.3
--- NOTE | 2020-09-13 09:36 | W.ANESPRE ---
General Info Date of Service Date Performed: 09/13/20 Height: 5 ft 8 in Weight: 96.5 kg Body Mass Index (BMI): 32.3 Surgical Procedure: Operation Date: 09/13/20 10:10 Proposed Procedures Side Surgeon p Ankle ORIF, POSSIBLE SYNDESMOTIC FIXATION Right Canelo Frazier MD Meds Allergies and Home Medications Allergies Allergy/AdvReac Type Severity Reaction Status Date / Time bee pollen Allergy Unknown Verified 09/13/20 09:20 adhesive AdvReac Intermediate Rash Verified 09/13/20 09:20 adhesive tape AdvReac Intermediate Rash Verified 09/13/20 09:20 aspartame AdvReac Intermediate Dizziness Verified 09/13/20 09:20 hydrocodone AdvReac Intermediate nausea Verified 09/13/20 09:20 lactose AdvReac Unknown Verified 09/13/20 09:20 oxycodone AdvReac Unknown dizziness, Verified 09/13/20 09:20 nausea tetanus and diphtheria AdvReac TOLERATES Verified 09/13/20 09:20 toxoids ONE HALF DOSE dust AdvReac Intermediate congestion Uncoded 09/13/20 09:20 Home Medication Medication Instructions Recorded ibuprofen 200 mg PO PRN 06/20/12 calcium carbonate-vitamin D3 2 ea PO HS 11/20/14 [Caltrate with Vitamin D3] loratadine 10 mg PO HS 12/24/17 cholecalciferol (vitamin D3) 25 See Rx Instructions PO DAILY 02/10/18 mcg (1,000 unit) tablet vit A 7,160 unit-C 113 mg-E 100 2 tab PO DAILY tab 12/01/18 [id number] tablet,delayed rel. epinephrine 0.3 mg/0.3 mL 0.3 mg IM ONCE #2 each 02/15/20 injection, auto-injector levothyroxine 100 mcg tablet 100 mcg PO DAILY #90 tab-cap 02/15/20 ascorbic acid (vitamin C) 500 mg 500 mg PO DAILY 09/11/20 capsule,extended release zinc 50 mg tablet 50 mg PO DAILY 09/11/20 naproxen sodium [Aleve] 220 mg PO BID PRN 09/13/20 Current Visit Medications: Current Medications Generic Name Dose Route Start Last Admin Trade Name Freq PRN Reason Stop Dose Admin Ephedrine Sulfate 0 mg 09/13/20 08:28 Ephedrine 50 Mg/Ml Vial IVP DIRECTED PRN Fentanyl 0 mcg 09/13/20 08:28 Fentanyl 100 Mcg/2 Ml Vial IVP DIRECTED PRN Ringer's Solution 1,000 mls @ 100 mls/hr 09/13/20 06:00 IV 10/12/20 23:59 INFUSION TENISHA Cefazolin Sodium/Dextrose 2 gm in 50 mls @ 100 mls/hr 09/13/20 06:00 Ancef Duplex IVPB 10/12/20 23:59 PREOP TENISHA Promethazine HCl 6.25 mg/ 50.25 mls @ 200 mls/hr 09/13/20 08:28 Sodium Chloride IVPB DIRECTED PRN Nausea IV Miscellaneous Supplies 1 each 09/13/20 06:00 Iv Access IV 10/12/20 23:59 DIRECTED TENISHA Lorazepam 0.5 mg 09/13/20 08:28 Lorazepam 2 Mg/Ml Vial IVP DIRECTED PRN Anxiety Naloxone HCl 0 mg 09/13/20 08:28 Naloxone 0.4 Mg/Ml Vial IVP PRN PRN Naproxen 250 - 500 mg 09/13/20 07:21 Naproxen 500 Mg Tab PO BID PRN PRN Sodium Chloride 0 ml 09/13/20 06:00 Normal Saline Flush 10 Ml Syr IV 10/12/20 23:59 PRN PRN Sodium Chloride 0 ml 09/13/20 06:00 Normal Saline 10 Ml Vial IJ 10/12/20 23:59 DIRECTED PRN Sterile Water 0 ml 09/13/20 06:00 Water,Injection,Sterile 10 Ml Vial IJ 10/12/20 23:59 DIRECTED PRN Tramadol HCl 50 mg 09/13/20 07:21 Tramadol 50 Mg Tab PO Q6H PRN PRN PFSH Active Problems Active Problems: Problem Status Onset Code Annual physical exam 12/23/15 Z00.00 Elevated blood pressure reading 02/13/14 R03.0 Increased body mass index R63.8 Plantar fasciitis M72.2 Seasonal allergies 10/20/17 J30.2 Tinnitus H93.19 Menopausal symptoms N95.1 Left leg pain M79.605 Hernia K46.9 Abdominal pain R10.9 Facet arthritis, degenerative, L5-S1 level, lumbosacral spine M47.817 Rectal prolapse K62.3 Closed right ankle fracture 09/06/20 S82.891A Syndesmotic disruption of right ankle 09/06/20 S93.431A Tachycardia 11/20/14 R00.0 Migraine G43.909 Low back pain M54.5 Lactose intolerance E73.9 Hypothyroidism 12/09/09 E03.9 Anxiety F41.9 Medical History Medical History Abnormal mammography Anxiety Epigastric abdominal pain Finger fracture, left (~1974) 5TH FINGER Hematuria (03/13/14) History of migraine History of reactive airway disease pt. denies Hypothyroidism (12/09/09) Lactose intolerance Low back pain Herniated Nucleus Pulposus Migraine Mononucleosis syndrome (04/16/05) Plantar fasciitis RLQ abdominal pain Tachycardia (11/20/14) supraventricular tachycardia 82 episodes/24 hrs see holter Surgical History Surgical History History of arthroscopy of knee History of bilateral ligation of fallopian tubes Meniscectomy Old anterior cruciate ligament disruption (09/19/12) LEFT KNEE WITH JOINT ADHEASIONS AND CHONDROMALACIA; DR. BHATTI Repair, ACL (09/21/12) WITH LATERAL MENISCAL REPAIR Status post vaginal hysterectomy Vaginal hysterectomy PARTIAL Tobacco Smoking/Tobacco Use Status: Never Passive smoking exposure: Yes Alcohol Alcohol Intake: never Vital Signs and Lab Results Vital Signs Most Recent Vital Signs in EMR: Most Recent Vital Signs Temp Pulse Resp BP Pulse Ox 36.7 C 88 18 154/92 H 99 09/13/20 09:29 09/13/20 09:29 09/13/20 09:29 09/13/20 09:29 09/13/20 09:29 Lab Results Blood Type / Crossmatch: No Data to Display Complete Blood Count: No Data to Display Complete Metabolic Panel: No Data to Display Liver Function Panel: No Data to Display Coagulation Panel: No Data to Display Cardiac Panel: No Data to Display Arterial Blood Gas: No Data to Display Venous Blood Gas: No Data to Display Pancreas Panel: No Data to Display Thyroid Panel: No Data to Display Infectious Disease: Coronavirus (COVID-19)(PCR) Negative (Negative) 09/11/20 11:16 09/11/20 Coronavirus 2019 Source Nasal/Nares 09/11/20 11:16 09/11/20 Blood Cultures: No Data to Display Toxicology Panel: No Data to Display Imaging and Studies Imaging and Studies Stress Test Summary: Impressions: Normal study after maximal exercise. Summary: 1. Stress ECG conclusions: The stress ECG is negative. Burger treadmill score: 9. This score predicts a low risk of cardiac events. 2. Stress: The target heart rate was achieved. The heart rate response to stress is normal. There is resting hypertension with an appropriate response to stress. The patient experienced no chest pain during stress. Exercise capacity is good (10.2 METS). 12/29/17 Other Study Summary:: Cardiac Event Monitor 01/19/18 The predominant underlying rhythm was sinus rhythm. Average heart rate in sinus rhythm 76 beats per minute, range of 47 to 151 beats per minute. There was occasional supraventricular ectopy, 1.3% PACs. There were 82 episodes of supraventricular tachycardia, average heart rate 137 beats per minute, range 70 to 280 beats per minute. The longest episode lasted 28 seconds. There was no ventricular tachycardia. There were no pauses greater than 3 seconds. There was no higher-degree heart block. There were 8 patient events, 6 events correlated with supraventricular tachycardic, all other events did not correlate with arrhythmia. FINAL INTERPRETATION Symptomatic paroxysmal supraventricular tachycardia. Anesthesia Assessment and Plan Anesthesia History Personal History: PONV and Delayed Emergence Family History: No Family History of Anesthesia Complications Exercise Tolerance Exercise Tolerance: Metabolic Equivalents<4 Pertinent Negatives Pertinent Negatives: No Major Cardiovascular Symptoms or Complaints and No Major Pulmonary Symptoms or Complaints Cardiac & Pulmonary Exam Cardiac Exam: Normal S1/S2 Heart Sounds Pulmonary Exam: Clear Bilateral Breath Sounds Airway Exam Known Difficult Airway: No Mallampati Class: 2 Mouth Opening: Normal (> 3cm) Thyromental Distance: Greater than 3 cm Neck Range of Motion: Full ROM Neck Circumference: Normal Teeth Condition: Normal Dentition ASA Classification ASA Score: ASA 2 Emergency Case?: No NPO Status NPO Status: NPO Clears >2 hours, Solids >8 hours Anesthesia Plan Resuscitation Status: Full Code Anesthesia Technique: General Anesthesia Airway Planned: Endotracheal Tube Pain Management: Surgeon and patient request nerve block Monitors Used: Standard Monitors
[2020-09-13] MEDS: Lactated Ringers 1,000 ML 100 ML IV (09:38)
[2020-09-13] MEDS: ceFAZolin 2 GM/50 ML BAG IVPB (10:25)
--- NOTE | 2020-09-13 10:56 | W.ANESNERVE ---
Nerve Block Single Injection Procedure Date and Time Date Performed: 09/13/20 Procedure Start: 09:58 Location Where Procedure Performed Procedure Location: PACU Reason Performed: Postoperative Analgesia Requesting Provider: Canelo Frazier Timeout Performed Timeout Performed: Yes Monitoring Used ECG, Blood Pressure and SpO2 Sterility Sterility: Hand Hygiene, Surgical Cap, Surgical Mask, Sterile Gloves and Chlorhexidine Sedation Given During Procedure Sedation Given (Indicate Dose Given): Versed IV Dose:: 2 mg and Precedex IV Dose:: total of 12 mcg Patient Mental Status Patient Mental Status: Sedate with meaningful communication Nerve Block 1st Nerve Block: Laterality: Right Block Type: Popliteal Sciatic Needle / Catheter Used: 100mm SonoPlex II Local Anesthetic Bolus (Indicate Dose Given): Lidocaine used for local infiltration of skin, Injected in 3-5ml increments after negative blood aspiration, Bupivacaine 0.25% Dose:: 20 ml and Exparel Dose:: 10 ml Additives (Indicate Dose Given): None Ultrasound: Sterile probe cover and gel used Ultrasound Image Saved?: Yes Nerve Stimulator: Not Used Paresthesia: None Procedure Tolerated: No Complications and Patient tolerated well Procedure Outcome: Successful Performed By: Julee Osuna
--- NOTE | 2020-09-13 12:35 | DI.RAD_ITS ---
Exam(s) XR ANKLE RT COMPLETE EXAM: XR ANKLE RT COMPLETE CLINICAL HISTORY: fractured right ankle TECHNIQUE: 2D and realtime digital imaging was performed. COMPARISON: No exams were available for comparison FINDINGS: C-arm fluoroscopy was utilized by Dr. Frazier during reduction and internal fixation of fracture of the distal fibula. Hard copy show plate and screw fixation the fracture fragments. IMPRESSION: RADIATION DOSE DELIVERED: wilver Campos 1.1 mGy
--- NOTE | 2020-09-13 13:15 | PDOC.DSDIS_ITS ---
Discharge Plan Disposition Patient Disposition: HOME Condition: Stable Discharge Details Reason For Visit: Right ankle surgery Attending Provider: Canelo Frazier Primary Care Provider: Verónica Dent Home Meds and New Rx's Prescriptions: New naproxen 250 mg tablet 250 - 500 mg PO BID PRN (Reason: Moderate pain or swelling) Qty: 60 RF: 0 aspirin 81 mg tablet,delayed release (DR/EC) 81 mg PO BID 30 Days Qty: 60 RF: 0 tramadol 50 mg Tablet 50 mg PO Q6H PRN PRN (Reason: severe pain) Qty: 20 RF: 0 ondansetron 4 mg tablet,disintegrating 4 mg PO Q6H PRN (Reason: nausea or vomiting) Qty: 5 RF: 0 Continued ICaps AREDS 7,160-113-100 ybjs-kn-ogar tablet,delayed release (DR/EC) 2 tab PO DAILY RF: 0 epinephrine [EpiPen 2-Silas] 0.3 mg/0.3 mL auto-injector 0.3 mg IM ONCE Qty: 2 RF: 2 levothyroxine 100 mcg tablet 100 mcg PO DAILY Qty: 90 RF: 12 ascorbic acid (vitamin C) 500 mg capsule, extended release 500 mg PO DAILY RF: 0 zinc 50 mg tablet 50 mg PO DAILY RF: 0 calcium carbonate-vitamin D3 [Caltrate with Vitamin D3] 1 EACH tablet 2 ea PO HS RF: 0 cholecalciferol (vitamin D3) 1,000 unit tablet See Rx Instructions PO DAILY RF: 0 loratadine 10 mg Capsule 10 mg PO HS RF: 0 Discontinued ibuprofen 200 MG tablet 200 mg PO PRN RF: 0 naproxen sodium [Aleve] 220 mg Tablet 220 mg PO BID PRNRF: 0 Discharge Instructions Additional Instructions: Surgery: Right ankle open reduction internal fixation Activity: Non-weightbearing in splint for 2 weeks. May use crutches, knee scooter, or wheelchair. Recommend elevation to minimize swelling discomfort. Encourage daily range of motion to all toes to prevent stiffness and increase circulation. A physical therapy prescription will be provided separately in the office at follow-up if needed. Plan to gradually increase weightbearing after initial follow-up. Prescriptions: Aspirin 81 mg take 1 twice daily to prevent a blood clot for 30 days Naproxen 250 mg take 1-2 every 12 hours with a meal as needed for moderate pain Tramadol 50 mg take 1 every 6 hours as needed for severe pain You may use [id number] Tylenol (acetaminophen) as needed for mild pain. These pain medications may be taken all at once or in different combinations as needed. Ondansetron (Zofran) 4 mg take 1 orally dissolving tablet every 6 hours as needed for nausea or vomiting Also, recommend Colace (docusate) as a stool softener as surgery and pain medicine cause constipation. Dressings: Leave splint and dressing in place until follow-up. Keep clean and dry at all times. Follow-up: 10-[address] Frazier Let us know right away if you develop any redness, drainage, fevers, chest pain, or trouble breathing. Do not drink alcohol or drive for at least 24 hours after anesthesia. Please call the office during business hours with any questions or concerns. Referrals: Canelo Frazier MD [ [facility] STAFF PHYSICIAN] - Equipment/Supplies: Splint Activity:: Elevate Remove Dressings/Wound Care:: Do Not Remove Shower/Bathe:: Cover Diet:: As Tolerated Discharge Orders Discharge Orders: Discharge Order (Routine); Ordered 09/13/20 Ordered By: Canelo Frazier DS: Diagnosis Discharge Diagnosis (1) Closed right trimalleolar fracture: Status: Acute
--- NOTE | 2020-09-13 13:18 | W.PM.OP ---
Date of service: 09/13/20 Time of Service: 13:19 Operative Note Operative Note DATE OF PROCEDURE: 09/13/20 PRE-OP DIAGNOSIS: Right trimalleolar ankle fracture POST-OP DIAGNOSIS: same PROCEDURE: Right trimalleolar ankle fracture ORIF, medial and lateral, CPT #[id number] SURGEON: Canelo Frazier SUPERVISOR ASSEMBLING: Delilah Clemente ANESTHESIA TYPE: Local By Surgeon, General LMA/ETT and Primary Nerve Block Refer to Anesthesia Record ESTIMATED BLOOD LOSS: 30 PATHOLOGY: none sent TOURNIQUET TIME: 0 COMPLICATIONS: None Patient was transported to: PACU Patient's condition: stable Implants: Synthes 2.7 mm distal fibula locking plate with 5x distal and 3x proximal 2.7 mm locking screws; Arthrex 4.75mm SwiveLock x1 medial malleolus Indications: Please see complete medical record for details. Findings: No significant ankle joint loose body or chondral injury. Disruption of AITF L about distal fibula fracture site. Minimally displaced posterior malleolus fracture. Acute and chronic medial sided avulsion fracture and deltoid ligament injuries. Soft bone density especially distally. Procedure Description: In the operating room, general anesthesia was induced. The patient was positioned supine on the operating room table. All bony prominences were well-padded. Preoperative antibiotics were administered. The right ankle was prepped and draped in the usual sterile fashion. The correct patient, procedure, and side of the procedure were all verified prior to incision. The planned medial and lateral incisions were preinjected with 0.5% bupivacaine containing epinephrine. The medial malleolus and distal fibula including fracture site were localized under fluoroscopic guidance. A longitudinal incision was made over the distal fibula extending from the distal end of the centimeters proximally. Care was taken to incise only the skin before checking for the peroneal nerve especially proximally prior to raising full-thickness flaps down to bone. Distally there was significant intact periosteum and lateral retinaculum over the distal fracture site that was incised as necessary in a full-thickness fashion for the flaps preserved for later repair. There was shortening and lateral translation of the fracture site. Initial imaging showed widened medial clear space with lateral talar translation and tilt and the acute versus chronic avulsion fracture of the medial malleolus. Decision was made to open the medial side with a few centimeter curvilinear longitudinal incision. Care was taken to incise only the skin. There is no saphenous vein or nerve about this surgical site and deep spreading quickly revealed a denuded medial malleolus and tip centrally and anteriorly with fibrous tissue and clots in the ankle joint. The ankle joint was thoroughly irrigated and inspected for any loose body or chondral injury. None were found. The deep fibers of the MCL were were brought back from flipped inside towards the medial malleolus. The superficial fibers were able to be retracted from inside the shoulder onto the medial aspect of the malleolus as well allowing reduction of the medial clear space and lateral talar translation. The bony fragment in the deep MCL was isolated and a horizontal mattress suture placed using a suture tape. The superficial fibers more anteriorly were also secured with horizontal mattress suture tape. The bare area on the distal anterior medial malleolus tip was prepared slightly to optimize tissue healing. 3.5 mm drill was used with fluoroscopic guidance centrally in the shoulder to a depth past 20 mm. The SwiveLock tap was then used and fluoroscopically confirmed appropriate hardware placement no joint or cortical perforation. Both pairs of sutures were brought through the SwiveLock eyelet which was then carefully tensioned with the foot in neutral and then the swivel lock was fully inserted and slightly countersunk into the medial malleolus. Care was taken to ensure no undue tension on the medial tissues. The ankle still had full dorsiflexion plantarflexion without any undue tightness on this repair. The suture tapes were left intact for possible later imbrication or augmentation of repair as necessary. Attention was then turned back to the lateral side. The fracture site was thoroughly irrigated and debrided of early fibrinous tissue. The AITF L was clearly torn at the anterior distal fibula and the lateral joint was viewed. Thoroughly irrigated of fibrinous tissue and again no loose body or significant cartilage injury noted. soft tissues were elevated about the fracture oblique margin as well as about the lateral fibula as needed proximally and distally for hardware placement. Bone reduction clamps as well as manual traction inversion and return rotation were used to restore fibular length and the reduction was clamped in excellent position. The distal fibula had extremely poor bone quality and was soft with bone clamping. The decision was made to proceed with locked distal fibula plating. An appropriate length distal fibula plate was applied to the lateral aspect of the fibula and fit to the patient's anatomy and distal fibula flare. A cortex screw was used centrally proximal to the fracture site to compress the plate down to bone and ensure proper position and rotation on x-ray. The posterior malleolus fracture was visible but only minimally displace decision was made to omit any fixation. The locking guide was then used to place a 2.7 mm locking screw centrally in the lateral malleolus and at the next proximal screw hole proximally. Provisional reduction was well-maintained and AP and lateral fluoroscopy as well as obliques confirmed appropriate hardware placement and fracture reduction. The AITF L anterior syndesmosis was then allowed to reflect back into near-anatomic position anteriorly. Next the variable angle guide was used to optimally direct additional locking screws taking care to have proper length but none being bicortical given joint proximity with spread anteriorly and posteriorly as well as distally. The clamp was removed and reduction maintained. The fixed angle locking guide was then used to fill the additional 2 locking screws. Lastly, an additional 2 distal locking screws were inserted again in variable angle fashion directing into best bone diverging away from the oblique fracture site. AP, lateral, and oblique fluoroscopy was used to confirm appropriate hardware placement and fracture reduction. Stress external rotation fluoroscopy did not reveal any widening of the tib-fib joint. There was slight increase gapping of the medial clear space. The medial repair was visualized again and the suture tape tails were then brought from the anchor back through the deep and superficial deltoid tissue further tightening and imbricating the repair but not causing any undue tightness or limiting range of motion. The initial low-profile compression screw was then removed to avoid hardware prominence. Final AP lateral and mortise fluoroscopy was used to confirm excellent ankle mortise, fracture reduction, and hardware placement. Stress external rotation imaging showed maintained ankle, syndesmosis, and medial clear space. The medial and lateral wounds were copiously irrigated with normal saline. Deeply distally laterally in the periosteum and retinaculum was closed over the plate using 2-0 Monocryl. Subcutaneous tissue was closed using 2-0 Monocryl in a buried interrupted fashion. The skin was closed using 3-0 nylon in a horizontal mattress fashion. Xeroform was applied over both incisions followed by 4 x 4 gauze, sterile soft roll, and ABD pads. The right lower extremity was placed into an appropriately padded and molded plaster short leg splint. The patient awoke from anesthesia without complication and was transferred to the recovery room in a stable condition.
--- NOTE | 2020-09-13 13:25 | W.ANESNERVE ---
Nerve Block Single Injection Procedure Date and Time Date Performed: 09/13/20 Procedure Start: 13:18 Location Where Procedure Performed Procedure Location: PACU Reason Performed: Postoperative Analgesia Requesting Provider: Canelo Frazier Timeout Performed Timeout Performed: Yes Monitoring Used ECG, Blood Pressure, SpO2, ETCO2 and See EMR for corresponding vital signs Sterility Sterility: Hand Hygiene, Surgical Cap, Surgical Mask, Sterile Gloves and Chlorhexidine Sedation Given During Procedure Sedation Given (Indicate Dose Given): No Sedation given Patient Mental Status Patient Mental Status: Sedate with meaningful communication Nerve Block 2nd Nerve Block: Laterality: Right Block Type: Adductor Canal Needle / Catheter Used: 100mm SonoPlex II Local Anesthetic Bolus (Indicate Dose Given): Lidocaine used for local infiltration of skin, Injected in 3-5ml increments after negative blood aspiration, Bupivacaine 0.25% Dose:: 10 ml and Exparel Dose:: 10 ml Additives (Indicate Dose Given): None Ultrasound: Sterile probe cover and gel used Ultrasound Image Saved?: Yes Nerve Stimulator: Not Used Paresthesia: None Post Procedure Pain score (0-10): 5 Procedure Tolerated: No Complications and Patient tolerated well Procedure Outcome: Successful Performed By: Julee Osuna
[2020-09-13] MEDS: fentaNYL 100 MCG/2 ML VIAL IVP ×2 (13:31→14:06)
--- NOTE | 2020-09-13 14:27 | W.ANESPOSTOP ---
Postoperative Evaluation Date, Time and Location Date Performed: 09/13/20 Time Performed: 14:27 Patient Location: PACU Vital Signs Most Recent Imported Vital Signs: Most Recent Vital Signs Temp Pulse Resp BP Pulse Ox 36.3 C L 63 13 143/78 H 93 09/13/20 14:12 09/13/20 14:12 09/13/20 14:12 09/13/20 14:12 09/13/20 14:12 Pain Score Most Recent Pain Score: Most Recent Pain Score Pain Level 5 09/13/20 13:30 Pain level down to 3-4 at 14:27 Assessment Mental Status: Awake (Alert & Oriented to Patient Baseline) Airway and Respiratory Function: Patent airway with normal (patient baseline) respiratory exam Cardiovascular Function: Hemodynamically Stable Hydration Status: Adequately Hydrated Nausea & Vomiting: No Nausea or Vomiting Pain: Pain is tolerable per patient Peripheral Nerve Block: Regional nerve block not resolved at time of post operative discharge Teaching Patient Teaching: Discussed Safe Use of Pain Medication Given Recent Anesthesia
[2020-09-13] MEDS: traMADol 50 MG TAB PO (14:54)
--- NOTE | 2020-09-13 17:00 | PT.INNT ---
Date of service: 09/13/20 PT Notes Visit Reasons: Right ankle surgery Patient refused to receive PT services per Nurse Allyson and Nurse Calzada. Referring orthopedic surgeon has been updated of said decision. Thank you for the opportunity to participate in the care of this patient. Soco Shin PT, DPT, CLT [facility] [place], [place]
== END 2020-09-13 16:20 | disposition home or self-care (01) ==
PROVIDERS: PCP Family Medicine; Visit Provider Student in an Organized Health Care Education/Training Program
PROC: (CPT 27822; principal; 2020-09-13 10:00)
DX: S82.851A Displaced trimalleolar fracture of right lower leg, initial encounter for closed fracture (principal); W54.1XXA Struck by dog, initial encounter; X50.1XXA Overexertion from prolonged static or awkward postures, initial encounter; W19.XXXA Unspecified fall, initial encounter; G89.18 Other acute postprocedural pain
CPT/HCPCS: 27822; C1713; 76942; 73610; J0690; J1100; J1885; J2250; J2405; J2704; J3010

== ENCOUNTER 2020-09-24 11:07 | Outpatient (CLI) | payer BC, SELFPAY ==
--- NOTE | 2020-09-24 10:45 | DI.RAD_ITS ---
Exam(s) XR ANKLE RT COMPLETE EXAM: XR ANKLE RT COMPLETE INDICATION: post op ORIF Right ankle. COMPARISON: CR XR ANKLE RT COMPLETE from 09/11/2020 CR XR ANKLE RT COMPLETE from 09/11/2020 XR ANKLE RT COMPLETE from 09/13/2020 XR ANKLE RT COMPLETE from 09/13/2020 TECHNIQUE: 2D digital imaging was performed. FINDINGS: AP station plate is again noted along the distal fibula for fracture fixation. The alignment is unch anged. There has been healing at the fracture site. Fracture of the tip of the medial malleolus is again noted. DATA REPOSITORY: RADIATION DOSE DELIVERED:
== END 2020-09-24 11:08 | disposition home or self-care (01) ==
LOC: DIORS 11:07
PROVIDERS: PCP Family Medicine; Referring Provider Family Medicine; Visit Provider Student in an Organized Health Care Education/Training Program
DX: S82.851D Displaced trimalleolar fracture of right lower leg, subsequent encounter for closed fracture with routine healing (principal); X58.XXXD Exposure to other specified factors, subsequent encounter
CPT/HCPCS: 73610

== ENCOUNTER 2020-10-22 10:54 | Outpatient (CLI) | payer BC, SELFPAY ==
--- NOTE | 2020-10-22 10:45 | DI.RAD_ITS ---
Exam(s) XR ANKLE RT COMPLETE EXAM: XR ANKLE RT COMPLETE CLINICAL HISTORY: right trimalleolar fx f/u. TECHNIQUE: 2D digital imaging was performed. COMPARISON: CR XR ANKLE RT COMPLETE from 09/24/2020 FINDINGS: BONES: Diffuse disuse osteopenia. No bony destructive lesion is seen. Fixation plate along the dista l fibula. Stable fracture fragment tip medial malleolus. Small heel spur.. JOINTS: The ankle mortise is normally aligned. SOFT TISSUE: Swelling around the malleoli. IMPRESSION: Stable hardware and fracture alignment. DATA REPOSITORY: RADIATION DOSE DELIVERED:
== END 2020-10-22 10:55 | disposition home or self-care (01) ==
LOC: DIORS 10:54
PROVIDERS: PCP Family Medicine; Referring Provider Family Medicine; Visit Provider Student in an Organized Health Care Education/Training Program
DX: S82.851D Displaced trimalleolar fracture of right lower leg, subsequent encounter for closed fracture with routine healing (principal); X58.XXXD Exposure to other specified factors, subsequent encounter
CPT/HCPCS: 73610

== ENCOUNTER 2020-12-10 10:58 | Outpatient (CLI) | payer BC, SELFPAY ==
--- NOTE | 2020-12-10 10:45 | DI.RAD_ITS ---
Exam(s) XR ANKLE RT COMPLETE EXAM: XR ANKLE RT COMPLETE CLINICAL HISTORY: right ORIF ankle. TECHNIQUE: 2D digital imaging was performed. COMPARISON: CR XR ANKLE RT COMPLETE from 10/22/2020 FINDINGS: BONES: There are stable post operative changes present. The osseous density at the tip of the medial malleolus appears stable. No new fracture or dislocation. The bones appear osteopenic which may be related to decreased use. There is a small spur at the plantar surface of the calcaneus. JOINTS: The joint spaces are well maintained. No joint effusion is present. SOFT TISSUE: Mild diffuse soft tissue swelling. IMPRESSION: Stable postoperative changes. DATA REPOSITORY: RADIATION DOSE DELIVERED:
== END 2020-12-10 10:59 | disposition home or self-care (01) ==
LOC: DIORS 10:58
PROVIDERS: PCP Family Medicine; Referring Provider Family Medicine; Visit Provider Physician Assistant
DX: S82.851D Displaced trimalleolar fracture of right lower leg, subsequent encounter for closed fracture with routine healing (principal); M79.18 Myalgia, other site; X58.XXXD Exposure to other specified factors, subsequent encounter
CPT/HCPCS: 73610

== ENCOUNTER 2021-02-05 01:40 | Outpatient (CLI) | payer BC, SELFPAY ==
--- NOTE | 2021-02-05 09:00 | DI.RAD_ITS ---
Exam(s) RF UPPER GI SERIES SINGLE EXAM: RF UPPER GI SERIES SINGLE CLINICAL HISTORY: GASTROESOPHAGEAL REFLUX DISEASE W/ HIATAL HERNIA K44.9 TECHNIQUE: COMPARISON: No exams were available for comparison FINDINGS: Preliminary films of the abdomen show unremarkable bowel gas pattern and no gross organomegaly. Barium was ingested and showed normal esophageal mucosal appearance. There is an apparent widely pat ent lower esophageal ring. There is no reflux. There is a large hiatal hernia. Gastric and duodenal mucosa appear intact. No evidence of ulceration. No evidence obstruction. IMPRESSION: Large hiatal hernia. Otherwise unremarkable upper GI series. RADIATION DOSE DELIVERED: Total DLP
[2021-02-05] MEDS: Barium Sulfate 60% W/V 355 ML BTL PO (09:47)
== END 2021-02-05 02:00 ==
PROVIDERS: PCP Family Medicine; Visit Provider Family Medicine
DX: K44.9 Diaphragmatic hernia without obstruction or gangrene (principal)
CPT/HCPCS: 74240

== ENCOUNTER 2021-02-11 10:46 | Outpatient (CLI) | payer BC, SELFPAY ==
--- NOTE | 2021-02-11 10:00 | DI.RAD_ITS ---
Exam(s) XR ANKLE RT COMPLETE EXAM: XR ANKLE RT COMPLETE CLINICAL HISTORY: ANKLE FX F/U. TECHNIQUE: 2D digital imaging was performed. Three images were obtained. COMPARISON: CR XR ANKLE RT COMPLETE from 09/24/2020 CR XR ANKLE RT COMPLETE from 09/24/2020 CR XR ANKLE RT COMPLETE from 12/10/2020 FINDINGS: BONES: There are stable post operative changes present. No new fracture or dislocation. The distal f ibular fracture line is not visualized on the current examination. The osseous fragment at the tip o f the medial malleolus appears stable. JOINTS: The joint spaces are well maintained. No joint effusion is present. SOFT TISSUE: Normal. IMPRESSION: Stable postoperative changes. DATA REPOSITORY: RADIATION DOSE DELIVERED:
== END 2021-02-11 10:47 | disposition home or self-care (01) ==
LOC: DIORS 11:29
PROVIDERS: PCP Family Medicine; Referring Provider Family Medicine; Visit Provider Student in an Organized Health Care Education/Training Program
DX: S82.851D Displaced trimalleolar fracture of right lower leg, subsequent encounter for closed fracture with routine healing (principal)
CPT/HCPCS: 73610

== ENCOUNTER 2021-02-25 17:31 | Outpatient (REF) | payer BC, SELFPAY ==
[2021-02-25 18:58] LABS: Bilirubin Negative (Negative); Blood Moderate (Negative); Clarity Turbid (Clear); Glucose Negative (Negative); Ketones 15 mg/dL (Negative); Leukocyte Esterase Negative (Negative); Nitrite Negative (Negative); Specific Gravity >= 1.030 (1.005-1.025); Urobilinogen 0.2 EU/dL (Up TO 0.2); pH 5.5 (5-8)
[2021-02-25 19:13] LABS: Crystals Many Amorphous HPF (Negative); WBC Negative HPF (0-5)
[2021-02-25 19:14] LABS: C & S Indicated? No; Epithelial Cells Few HPF (Negative)
== END 2021-02-25 17:32 | disposition home or self-care (01) ==
LOC: LBN 17:31
PROVIDERS: PCP Family Medicine; Visit Provider Family Medicine
DX: R30.0 Dysuria (principal)
CPT/HCPCS: 81003; 81015

== ENCOUNTER 2021-09-23 13:16 | Outpatient (CLI) | payer BC, SELFPAY ==
--- NOTE | 2021-09-23 13:00 | DI.RAD_ITS ---
Exam(s) XR ANKLE RT COMPLETE EXAM: XR ANKLE RT COMPLETE CLINICAL HISTORY: ORIF R ankle. TECHNIQUE: 2D digital imaging was performed. Three images were obtained. AP, lateral and oblique vi ews were obtained. COMPARISON: CR,XR XR ANKLE RT COMPLETE from 09/06/2020 CR XR ANKLE RT COMPLETE from 02/11/2021 FINDINGS: BONES: There are stable post operative changes present. No new fracture or dislocation. The distal f ibular fracture appears well healed. The avulsed fracture fragment at the tip of the medial malleolu s remains nonunited. There is a small plantar calcaneal spur. JOINTS: The joint spaces are well maintained. No joint effusion is present. SOFT TISSUE: Normal. IMPRESSION: No acute abnormality. DATA REPOSITORY: RADIATION DOSE DELIVERED:
== END 2021-09-23 13:17 | disposition home or self-care (01) ==
LOC: DIORS 13:16
PROVIDERS: PCP Family Medicine; Referring Provider Family Medicine; Visit Provider Physician Assistant
DX: S82.851A Displaced trimalleolar fracture of right lower leg, initial encounter for closed fracture (principal); X58.XXXA Exposure to other specified factors, initial encounter
CPT/HCPCS: 73610

== ENCOUNTER 2022-02-24 10:09 | Outpatient (CLI) | payer BC, SELFPAY ==
[2022-02-24 12:51] LABS: ALT 16 U/L (14-59); AST 17 U/L (15-37); Albumin 3.7 g/dL (3.4-5.0); Alkaline Phosphatase 99 U/L (46-116); BUN 21 mg/dL (7-18); Bilirubin, Total 0.4 mg/dL (0.2-1.0); CREATININE 0.7 mg/dL (0.55-1.02); Calcium 8.9 mg/dL (8.5-10.1); Chloride 104 mmol/L (98-107); Estimated GFR 100.19 (mL/min/1.73m2); Glucose 100 mg/dL (74-106); Potassium 3.9 mmol/L (3.5-5.1); Sodium 141 mmol/L (136-145); TSH (W/Ref FT4) 3.55 uIU/mL (0.36-3.74); Total Protein 7.7 g/dL (6.4-8.2)
[2022-02-24 13:09] LABS: Vitamin D 25 Total 52.1 ng/mL (30-100)
== END 2022-02-24 10:10 | disposition home or self-care (01) ==
LOC: LOS 10:09
PROVIDERS: PCP Family Medicine; Referring Provider Family Medicine; Visit Provider Family Medicine
DX: Z00.00 Encounter for general adult medical examination without abnormal findings (principal); E55.9 Vitamin D deficiency, unspecified
CPT/HCPCS: 36415; 80053; 82306; 83036; 84443

== ENCOUNTER → 2022-03-02 01:18 | Outpatient (CLI) | payer BC, SELFPAY ==
--- NOTE | 2022-03-02 07:30 | DI.MAMMO_ITS ---
Exam(s) MAMMO SCREENING EXAM: MAMMO SCREENING CLINICAL HISTORY: screening,z12.39 TECHNIQUE: Mammograms were interpreted according to the usual protocol including computer analysis w [employer] CAD system, tomosynthesis and C-view imaging. COMPARISON: 2012 through 2020 FINDINGS: The breasts are composed of scattered fibroglandular densities, Breast Density category B. No suspicious masses or suspicious microcalcifications are seen. Biopsy marker clip is again noted i n the lateral left breast. No skin thickening or abnormal axillary lymph nodes are seen. There has been no significant change from prior exams. IMPRESSION: BI-RADS Category 1, Negative mammogram Yearly screening mammography is recommended. Breast Density - Category B, scattered fibroglandular densities. A negative radiographic report should not delay biopsy if a dominant or clinically suspicious mass is present. Up to ten percent of cancers are not identified on mammography. A negative report may reinforce clinical impression. Adenosis and dense breasts may obscure an underlying neoplasm. False positive reports average 6 to 10%. Patient will receive a letter notifying them of these results.
== END ==
PROVIDERS: PCP Family Medicine; Visit Provider Family Medicine
DX: Z12.31 Encounter for screening mammogram for malignant neoplasm of breast (principal)
CPT/HCPCS: 77063; 77067

== ENCOUNTER 2022-08-26 10:38 | Outpatient (CLI) | payer BC, SELFPAY ==
--- NOTE | 2022-08-26 18:00 | DI.RAD_ITS ---
Exam(s) XR RIBS LT W PA LAT CHEST EXAM: XR RIBS LT W PA LAT CHEST CLINICAL HISTORY: S/P fall with pain on deep breathing. TECHNIQUE: 2D digital imaging was performed. COMPARISON: No exams were available for comparison FINDINGS: Six views: Left rib cage-four views: No evidence of obvious left rib fractures. No rib lesions. No pneumothora x. Chest-two views: Heart size normal. Mediastinum not widened. There is vertical scarring in both low er lobes posterior basal segments. No pleural effusions. No pneumothorax. IMPRESSION: No acute left rib fractures. No pneumothorax. Lung scarring bilaterally in lower lobes but no acute infiltrates. No pleural effu sions DATA REPOSITORY: RADIATION DOSE DELIVERED:
--- NOTE | 2022-08-26 18:46 | DI.VRAD_ITS ---
PROCEDURE INFORMATION: Exam: XR Left Ribs Exam date and time: 08/26/2022 18:08 Age: 57 years old Clinical indication: Other: S/P fall with pain on deep breathing TECHNIQUE: Imaging protocol: Radiologic exam of the left ribs. Views: 2 views. COMPARISON: CR XR CHEST 2V PA LATERAL 12/24/2017 14:05 FINDINGS: Bones/joints: No acute fracture with attention to the left-sided ribs. Soft tissues: Normal. IMPRESSION: No acute fracture with attention to the left-sided ribs. PROCEDURE INFORMATION: Exam: XR Chest Exam date and time: 08/26/2022 18:08 Age: 57 years old Clinical indication: Other: S/P fall with pain on deep breathing TECHNIQUE: Imaging protocol: Radiologic exam of the chest. Views: 2 views. COMPARISON: CR XR CHEST 2V PA LATERAL 12/24/2017 14:05 FINDINGS: Lungs: No consolidation. Pleural spaces: No pleural effusion. No pneumothorax. Heart/Mediastinum: No cardiomegaly. Bones/joints: No acute fracture. IMPRESSION: No acute cardiopulmonary pathology. Dictated and Authenticated by: Nata Villeda MD. Ordering:ALOK Mathew MD
== END 2022-08-26 10:58 ==
PROVIDERS: PCP Family Medicine; Visit Provider Nurse Practitioner Family
DX: W10.9XXA Fall (on) (from) unspecified stairs and steps, initial encounter (principal); R06.00 Dyspnea, unspecified
CPT/HCPCS: 71046; 71100

== ENCOUNTER 2022-09-02 10:43 | Outpatient (CLI) | payer BC, SELFPAY ==
--- NOTE | 2022-09-02 13:03 | DI.RAD_ITS ---
Exam(s) XR LUMBAR SPINE COMPLETE EXAM: XR LUMBAR SPINE COMPLETE CLINICAL HISTORY: continued left low back pain after fall,W19.XXXA, M54.50. TECHNIQUE: 2D digital imaging was performed of the lumbar spine. Five images were obtained. AP, la teral, right oblique, left oblique and L5-S1 spot views were obtained. COMPARISON: CR XR LUMBAR SPINE COMPLETE from 02/13/2019 FINDINGS: BONES: No fracture or destructive lesion. Endplate osteophytes are seen at L5-S1. No facet hypertroph y identified. DISKS: There is disc space narrowing and a vacuum disc at L5-S1. ALIGNMENT: Lumbar spinal alignment is within normal limits. No spondylolysis or spondylolisthesis. SOFT TISSUE: Normal. IMPRESSION: Stable degenerative changes at the L5-S1 disc space. DATA REPOSITORY: RADIATION DOSE DELIVERED:
== END 2022-09-02 11:03 ==
LOC: DI 10:47
PROVIDERS: PCP Family Medicine; Visit Provider Nurse Practitioner Family
DX: M54.50 Low back pain, unspecified (principal); W19.XXXA Unspecified fall, initial encounter; M51.36 Other intervertebral disc degeneration, lumbar region
CPT/HCPCS: 72110

== ENCOUNTER 2022-09-17 01:51 | Outpatient (CLI) | payer BC, SELFPAY ==
--- NOTE | 2022-09-17 07:15 | DI.CT_ITS ---
Exam(s) CT ABDOMEN PELVIS W EXAM: CT ABDOMEN PELVIS W CLINICAL HISTORY: continued left abd pain, fall, W19.XXA, R10.9. TECHNIQUE: Imaging Protocol: Axial computed tomography images with coronal and sagittal reformatted images were created and reviewed CONTRAST MATERIAL: Intravenous: Omnipaque 350 Contrast volume:100 ml Oral: yes / no COMPARISON: CT CT ABDOMEN PELVIS W from 01/03/2020 CR,XR XR RIBS LT W PA LAT CHEST from 08/26/2022 CR XR LUMBAR SPINE COMPLETE from 09/02/2022 FINDINGS: ABDOMEN: Lung Bases: Normal where visualized. Subacute appearing fracture of the left 12 rib as well as late ral left 10th rib. Liver: Normal density. No measurable mass. Gallbladder and biliary tract: No radiodense calculus or dilation. Pancreas: Normal density, no abnormal calcifications or inflammatory process. Spleen: Absent. Kidneys: Normal size, contour and axis. No radiodense stones or obstructive uropathy. No suspicious m asses seen. Adrenal glands: No masses seen. Abdominal Aorta: Abdominal portion non-dilated. Soft tissues: Unremarkable. PELVIS: Bladder: No gross wall thickening. No calculi.No focal mass. Bowel: Diverticulosis. No obstruction. No bowel wall thickening. Appendix normal. Peritoneal cavity: Stable haziness of the mesentery Bones: Degenerative disc changes L5-S1. No pelvic or spine fractures. Reproductive organs: Status post hysterectomy. Lymph nodes: Unremarkable. Impression: Subacute fractures of the left 10th and 12th ribs. No evidence of pneumothorax or internal organ inj ury. RADIATION DOSE DELIVERED: 1,231.73mGy.cm Total DLP DATA REPOSITORY: All CT scans at this facility are submitted to the National Radiology Data Registry (NRDR) Dose Index Registry (DIR) with the [employer] ([employer]). RADIATION OPTIMIZATION: All CT scans at this facility use at least one of these dose optimization te chniques: automated exposure control; mA and/or kV adjustment per patient size (includes targeted exa ms where dose is matched to clinical indication); or iterative reconstruction.
[2022-09-17] MEDS: Barium Sulfate 2% W/V-Berry Smoothie 450 ML BTL 900 ML PO (07:52)
[2022-09-17] MEDS: Normal Saline - Diluent 50 ML VIAL IJ (09:49)
[2022-09-17] MEDS: Normal Saline Flush 10 ML SYR IVP (09:49)
[2022-09-17] MEDS: Omnipaque 350 MG/ML 500 ML BTL-Imaging package IJ (09:49)
== END 2022-09-17 02:11 ==
LOC: DI 01:52
PROVIDERS: PCP Family Medicine; Visit Provider Nurse Practitioner Family
DX: W19.XXXA Unspecified fall, initial encounter; K57.90 Diverticulosis of intestine, part unspecified, without perforation or abscess without bleeding; Z90.710 Acquired absence of both cervix and uterus; S22.41XA Multiple fractures of ribs, right side, initial encounter for closed fracture
CPT/HCPCS: 74177

== ENCOUNTER 2022-12-28 17:18 | Outpatient (REF) | payer BC, SELFPAY ==
--- NOTE | 2022-12-28 15:20 | SKI_PTH ---
PATIENT: Lyn Purdy LOC: [facility] U#:[id number] AGE/SX: 57/F ROOM: RE12/28/[address]: Priyanka De La O NP : 1965 BED: DIS: 12/28/2022 SPEC #: [id number] RECD: 12/29/22 12:25 STATUS: JORDYN REZenon #: [id number] CLINT: 12/28/22 15:[address]: Priyanka De La O DEPT: Surgical Specimen RECD BY: Cindi Arteaga ENTERED: 12/29/22 12:26 SP TYPE: JUAN LUIS JACKSON DR: Verónica Dent MD, DC Tissues: 1 - SKIN BIOPSY(SHAVE/PUNCH) Procedures: GROSS AND MICRO LEVEL 3 Comments: [id number]
== END 2022-12-28 17:19 | disposition home or self-care (01) ==
LOC: LBN 17:18
PROVIDERS: PCP Family Medicine; Visit Provider Nurse Practitioner Family
DX: L91.8 Other hypertrophic disorders of the skin (principal)
CPT/HCPCS: 88304; 88305

== ENCOUNTER → 2023-03-05 01:02 | Outpatient (CLI) | payer BC, SELFPAY ==
--- NOTE | 2023-03-05 | DI.MRI_ITS ---
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 TECHNIQUE: Multiplanar multisequence MRI was performed. COMPARISON: CR XR SHOULDER LEFT from 12/31/2022 FINDINGS: BONES: There is no fracture or contusion pattern. JOINTS: There are mild degenerative changes seen at the acromioclavicular joint. The glenohumeral jasper int is normal. TENDONS: Supraspinatus: There is hyperintense signal seen in the supraspinatus tendon consistent with tendinos is. There is no evidence of a full-thickness supraspinatus tendon tear. Infraspinatus: Unremarkable. Subscapularis: Unremarkable. Teres Minor: Unremarkable. Biceps and Clothier: Unremarkable. MUSCLES: Unremarkable. GLENOID LABRUM: Unremarkable on this noncontrast examination. SOFT TISSUES: Unremarkable. LIGAMENTS: Unremarkable. OTHER: There is a small amount of edema seen in the subacromial subdeltoid bursa. IMPRESSION: 1. Degenerative changes are seen at the acromioclavicular joint which are mild. 2. Mild hyperintense signal is seen in the supraspinatus tendon consistent with tendinosis. 3. No evidence of a rotator cuff tear. 4. Small amount of edema seen in the subacromial subdeltoid bursa suspicious for bursitis. DATA REPOSITORY:
== END ==
PROVIDERS: PCP Family Medicine; Visit Provider Physician Assistant
DX: M19.012 Primary osteoarthritis, left shoulder (principal)
CPT/HCPCS: 73221